=== PATIENT | female | born 1955 | race Caucasian/White ===

== ENCOUNTER 2019-06-12 10:41 | Outpatient (CLI) | payer MEDICAID, SELFPAY ==
--- NOTE | 2019-06-12 11:13 | ECHO_ITS ---
Patient Info Name: Khushboo Pierre Age: 63 years : 1955 Gender: Female Ht: 65 in Wt: 210 lbs BSA: 2.13 m2 HR: 51 bpm BP: 116 / 61 mmHg Technical Quality: Good Exam Date: 06/12/2019 11:23 AM Exam Location: [facility] Patient Status: Outpatient Admit Date: 06/12/2019 Staff Ordering Physician: Joe Mcdonald MD S[employer]uric [employer] Plant Operator: Minna Spivey RDCS Attending Provider: Joe Mcdonald MD Referring Physician: Tamara JENNINGS; Exam Type: CA echo doppler color flow Study Info Indications - localized swelling Complete two-dimensional, color flow and Doppler transthoracic echocardiogram is performed. Summary 1. Left ventricular chamber dimension is normal. 2. Left ventricular systolic function is normal, estimated at 60-65%. 3. The left ventricular diastolic function is grade II diastolic dysfunction. 4. E/E' 13 is mildly elevated. 5. Left atrial chamber dimension is mildly enlarged. 6. There is mild tricuspid valve regurgitation. 7. No pulmonary hypertension, estimated pulmonary arterial systolic pressure is 28 mmHg. 8. There is trace pulmonic regurgitation. Left Ventricle E/E' 13 is mildly elevated. Left ventricular chamber dimension is normal. Left ventricular systolic function is normal, estimated at 60-65%. The left ventricular diastolic function is grade II diastolic dysfunction. Right Ventricle Right ventricular chamber dimension is normal. Right ventricular systolic function is normal. Left Atria Left atrial chamber dimension is mildly enlarged. Right Atria Right atrial chamber dimension is normal. Aortic Valve The aortic valve is trileaflet. There is no aortic valve stenosis. There is no aortic valve regurgitation. Pulmonic Valve There is trace pulmonic regurgitation. Mitral Valve There is no mitral valve stenosis. There is no mitral valve regurgitation. Tricuspid Valve There is mild tricuspid valve regurgitation. No pulmonary hypertension, estimated pulmonary arterial systolic pressure is 28 mmHg. Pericardium/Pleural There is no pericardial effusion. Inferior Vena Cava Normal inferior vena cava with >50% collapse upon inspiration consistent with normal right atrial pressure, 5 mmHg. Aorta The aortic root size at the sinus of Valsalva is normal. Left Ventricular Outflow Tract Name Value Normal LVOT 2D LVOT Diameter 2.0 cm LVOT Doppler LVOT Peak Gradient 4 mmHg LVOT Mean Gradient 2 mmHg LVOT VTI 23 cm LVOT VTI/AV VTI Ratio 0.7 LVOT Stroke Volume 74 ml LVOT CO 13.1 l/min LVOT CI 6.1 l/min/m2 Pulmonic Valve Name Value Normal PV Doppler PV Peak Gradient
== END 2019-06-12 10:42 | disposition home or self-care (01) ==
LOC: ANHCARD 10:44
PROVIDERS: PCP Family Medicine; Visit Provider Family Medicine
DX: R22.43 Localized swelling, mass and lump, lower limb, bilateral (principal); I11.9 Hypertensive heart disease without heart failure; E11.65 Type 2 diabetes mellitus with hyperglycemia
CPT/HCPCS: 93306

== ENCOUNTER 2020-07-24 13:20 | Outpatient (CLI) | payer MEDICARE, MEDICAID, SELFPAY ==
--- NOTE | ~2020-07-24 | XR_ITS ---
EXAMINATION: XR knee RT 3V EXAM DATE: 07/24/2020 13:47 INDICATION: M23.91 -Right knee pain, internal derangement. TECHNIQUE: Three projections of the right knee. There is no prior study for comparison. FINDINGS: No evidence osteochondral defect or joint body in the right knee joint. There is moderate tricompartmental primary osteoarthritis. Trace joint fluid. There are no acute fractures or disloca tions identified. There is no subcutaneous gas. The soft tissue is unremarkable. There are no rad iopaque foreign bodies. IMPRESSION: Moderate right knee osteoarthritis. Reviewed, dictated and finalized at location B. D DRIVER
== END 2020-07-24 13:21 | disposition home or self-care (01) ==
PROVIDERS: PCP Family Medicine; Visit Provider Family Medicine
DX: M23.91 Unspecified internal derangement of right knee (principal); M17.11 Unilateral primary osteoarthritis, right knee
CPT/HCPCS: 73562

== ENCOUNTER 2020-12-07 07:12 | Outpatient (CLI) | payer MEDICARE, MEDICAID, SELFPAY ==
--- NOTE | ~2020-12-07 | MM_ITS ---
EXAMINATION: MM screening jamia BI w marisol HISTORY: Screening mammogram TECHNIQUE: Craniocaudal and mediolateral oblique 3-D tomosynthesis images were obtained and synthetic 2-D images were generated. CAD analysis was submitted and interpreted. COMPARISON: No prior mammogram is available for comparison at this institution. BREAST PARENCHYMAL COMPOSITION: The breasts are almost entirely fatty. FINDINGS: There is no evidence of suspicious mass, calcification, or architectural distortion to sugg est malignancy in either breast. There has been no suspicious interval change. IMPRESSION: 1. No mammographic evidence of malignancy. 2. Recommend routine screening mammography in one year. BI-RADS Category 1: Negative Reviewed, dictated and finalized at location A.
--- NOTE | ~2020-12-07 | CT_ITS ---
EXAMINATION: CT lung screening DATE: 12/07/2020 08:08 INDICATION: Chronic cough TECHNIQUE: Computed tomography (CT) of the chest was performed without intravenous contrast. The dose -length product was 145.17 mGy-cm. Automated exposure control and iterative reconstruction technique were employed. COMPARISON: Chest dated 05/08/[address] dated 08/02/2017 FINDINGS: No significant pleural or pericardial effusion. No thoracic lymphadenopathy. There is ather osclerosis of the aorta and coronary arteries. There are surgical changes of left nephrectomy and cho lecystectomy. There is a 3 mm left upper lobe nodule, image 29. There is a calcified granuloma right upper lobe. No endobronchial lesions. No pneumothorax. IMPRESSION: 1. Lung-RADS category 2: Benign appearance or behavior. Continue annual screening with noncontrast lo w-dose chest CT in 12 months. Reviewed, dictated and finalized at location A. IMPRESSION: 1. Lung-RADS category 2: Benign appearance or behavior. Continue annual screeni ng with noncontrast low-dose chest CT in 12 months.
--- NOTE | ~2020-12-07 | DEXA_ITS ---
Bone Density Report Name: Khushboo Pirere Age: 65 Sex: Female Ethnicity: White Date of : 1955 Indication: postmenopausal; screening for osteoporosis; hysterectomy; Referring Provider: Brady Grissom Study: Bone densitometry was performed. Exam Date: December 07, 2020 Accession number: [id number] Bone Density: Region BMD T-score Z-score Classification AP Spine(L1-L4) 0.939 -1.0 0.8 Normal Femoral Neck (Left) 0.721 -1.2 0.4 Osteopenia Total Hip (Left) 0.891 -0.4 0.9 Normal Femoral Neck (Right) 0.712 -1.2 0.3 Osteopenia Total Hip (Right) 0.819 -1.0 0.3 Normal Femoral Neck Mean 0.717 -1.2 0.4 Osteopenia Total Hip Mean 0.855 -0.7 0.6 Normal World Health Organization criteria for BMD impression classify patients as: Normal (T-score at or above -1.0), Osteopenia (T-score between -1.0 and -2.5), or Osteoporosis (T-score at or below -2.5). 10-year Fracture Risk(1): Major Osteoporotic Fracture 8.1% Hip Fracture 1.2% Reported Risk Factors: [place] (), Neck BMD=0.712, BMI=32.3, smoking (1) FRAX(R) Version 3.08. Fracture probability calculated for an untreated patient. Fracture probability may be lower if the patient has received treatment. Clinical Information Provided by Patient: Smokes Has the following medical conditions: Hysterectomy Patient maximum height was 66 Menopause Age: 32 Drinks caffeinated beverages Onset of menses at age 13 Number of children 4 Impression: The patient has low bone mass, based on the Left Femoral Neck T-score. The patient has risk factors, including: smoking. Discussion: BONE DENSITY IS LOW AT ONE OR MORE SKELETAL SITES. This patient's lowest T-score is low at one or more skeletal sites. It meets the World Health Organization's (WHO) criteria for ?low bone mass? (T-score between -1.0 and -2.5). The patient's 10-year risk of fracture as calculated by FRAX is less than the threshold where pharmacological therapy is recommended by the National Osteoporosis Foundation (NOF). However, all treatment decisions require clinical judgment and consideration of individual patient factors, including patient preferences, comorbidities, previous drug use, risk factors not captured in the FRAX model (e.g., frailty, falls, vitamin D deficiency, increased bone turnover, interval significant decline in bone density) and possible under or overestimation of fracture risk by FRAX. The patient should follow a healthful lifestyle (good nutrition with adequate calcium and vitamin D, and appropriate weight-bearing exercise). Follow-Up: Consider repeating this study in 2 to 3 years to reassess this patient's status, or sooner if there is some new clinical indication. Reported by: Dr. Carlyle Tripathi on 12/07/2020 8:01:00 AM.
[2020-12-07 07:27] LABS: Basophils Absolute Auto 0.05 K/mm3 (0.00-0.10); Basophils Percent Auto 0.6 % (0.0-1.0); Eosinophils Absolute Auto 0.23 K/mm3 (0.02-0.50); Eosinophils Percent Auto 2.6 % (1.0-6.0); Hematocrit 40.4 % (35.0-42.0); Hemoglobin 13.4 g/dL (11.7-13.8); Immature Granulocyte Absolute 0.02 K/mm3 (0.00-0.00); Immature Granulocyte Percent A 0.2 % (0.0-0.0); Lymphocytes Absolute Auto 3.42 K/mm3 (1.10-4.50); Lymphocytes Percent Auto 38.5 % (18.0-42.0); Mean Corpuscular HGB Conc 33.2 g/dL (32.0-36.0); Mean Corpuscular Hemoglobin 29.3 pg (27.0-31.0); Mean Corpuscular Volume 88.2 fL (78.0-102.0); Monocytes Absolute Auto 0.66 K/mm3 (0.10-0.90); Monocytes Percent Auto 7.4 % (2.0-11.0); Neutrophils Absolute Auto 4.5 K/mm3 (1.7-7.2); Neutrophils Percent Auto 50.7 % (50.0-70.0); Platelet Count Result 264 K/mm3 (150-420); Red Blood Count 4.58 M/mm3 (4.20-5.40); Red Cell Distribution Width 12.7 % (11.6-14.4); White Blood Count 8.9 K/mm3 (4.8-10.8)
[2020-12-07 07:53] LABS: Alanine Aminotransferase 24 U/L (14-59); Albumin Level 3.4 g/dL (3.4-5.0); Alkaline Phosphatase 81 U/L (46-116); Anion Gap 10 mmol/L (8-16); Aspartate Amino Transferase 12 U/L (15-37); Bilirubin,Total 0.3 mg/dL (0.00-1.00); Blood Urea Nitrogen 28 mg/dL (7-18); Calcium 9.2 mg/dL (8.5-10.1); Carbon Dioxide 25 mmol/L (21-32); Chloride 106 mmol/L (98-108); Estimated Glomerular Filt Rate 45; Glucose 127 mg/dL (70-99); Osmolality Calculated 299 mOsm/kg (285-295); Potassium 4.2 mmol/L (3.5-5.1); Sodium 141 mmol/L (136-145); Total Protein 7.3 g/dL (6.4-8.2)
== END 2020-12-07 07:13 | disposition home or self-care (01) ==
LOC: CHSIMG 07:18
PROVIDERS: PCP Internal Medicine; Visit Provider Internal Medicine
DX: E11.9 Type 2 diabetes mellitus without complications (principal); I10 Essential (primary) hypertension; Z12.31 Encounter for screening mammogram for malignant neoplasm of breast; Z78.0 Asymptomatic menopausal state; Z13.820 Encounter for screening for osteoporosis; Z12.2 Encounter for screening for malignant neoplasm of respiratory organs; Z87.891 Personal history of nicotine dependence
CPT/HCPCS: 36415; 71271; 77063; 77067; 77080; 80053; 85025

== ENCOUNTER 2021-01-12 01:33 | Day surgery (SDC) | payer MEDICARE, MEDICAID, SELFPAY ==
[2020-12-30 14:32] VITALS: BMI 33.1
[2021-01-12 08:03] VITALS: BP 105/53; PULSE 74; RESP 18; TEMP 35.1; O2SAT 98; BMI 32.5
[2021-01-12 08:31] LABS: Glucose Point of Care 155 mg/dl (65-105)
--- NOTE | 2021-01-12 08:36 | WPDGICN ---
Assessment and Plan Assessment and plan (1) Family history of colon cancer in mother: Code(s): Z80.0 - Family history of malignant neoplasm of digestive organs Status: Acute Assessment and Plan: Patient has a family history colon cancer in both mother and daughter. Surveillance colonoscopy is advised at least every 5 years. (2) History of colon polyps: Code(s): Z86.010 - Personal history of colonic polyps Status: Acute Assessment and Plan: Patient has a prior history of colon polyps in addition to a family history of colon cancer. An additional reason for screening colonoscopy at least every 5 years. Further recommendations will be given after colonoscopy. GI Consult Note Consult date/time: 01/12/21 08:36 HPI: Khushboo Pierre is a 65 year old female Presents for screening colonoscopy. Patient has a prior history of colon polyps. Colonoscopy was performed in 2004. Additionally patient reports a family history of colon cancer in both her mother and daughter. She reports that her own weight appetite bowel movements normal. She desires neoplasia screening at this time. patient denies any blood in her stool she denies abdominal pain. Main stable. Review of Systems Review of Systems: All systems reviewed & are unremarkable except as noted in HPI and below PMFSH Past Medical History Medical History (Updated 01/12/21 @ 08:38 by David Suh MD) Atrial premature depolarization Dermatofibroma History of chicken pox History of measles History of mumps Impaired glucose tolerance (oral) Internal derangement of right knee YOMI (obstructive sleep apnea) Supraventricular tachycardia Surgical History Surgical History (Updated 08/17/20 @ 09:15 by Elza Soto CMA) History of bladder suspension procedure History of hysterectomy History of kidney removal cancer Hx of cholecystectomy Family History Family History (Updated 08/17/20 @ 09:48 by Elza Soto CMA) Mother Carcinoma of colon Father , car accident No problems noted. Sibling Diabetes mellitus Sibling Breast cancer Diabetes mellitus Sibling Diabetes mellitus Cancer Sibling Diabetes mellitus Daughter No problems noted. Daughter Carcinoma of colon Son No problems noted. Son No problems noted. Grandparent Heart disease Social History Social History Smoking packs per day: 1 Smoking cigarettes per day: 20.0 Years smoked: 46 Smoking pack-years: 46.00 Smoking status: Current every day smoker Tobacco type: cigarettes Alcohol intake: never Substance use: never Substance use type: does not use Living arrangements: with family Gender identity (if verbalized by the patient): Female Spiritual care concerns: No Meds Home Medications and Allergies Home Medications Medication Instructions Recorded Confirmed Type aspirin 81 mg tablet,delayed 81 mg PO DAILY 05/16/19 01/12/21 History release lisinopril 40 mg tablet See Rx Instructions .ROUTE 07/22/20 01/12/21 Rx .COMPLEX #90 tablet semaglutide 0.25 mg SUBCUT WEEKLY #1.5 ml 08/07/20 01/12/21 Rx fluoxetine 40 mg capsule See Rx Instructions .ROUTE 12/28/20 01/12/21 Rx .COMPLEX #90 cap metformin 500 mg tablet,extended 500 mg PO DAILY #90 tablet 12/28/20 01/12/21 Rx release 24 hr hydrochlorothiazide 12.5 mg tablet 12.5 mg PO DAILY #90 tablet 12/29/20 01/12/21 Rx bupropion HCl 300 mg 24 hr tablet, See Rx Instructions .ROUTE 01/11/21 01/12/21 Rx extended release .COMPLEX #90 tablet Allergies Allergy/AdvReac Type Severity Reaction Status Date / Time codeine Allergy Unknown Skin Verified 01/12/21 07:59 Reaction Vital Signs Vital Signs - 24 hr 01/12/21 08:03 Temperature 95.1 F L Pulse Rate 74 Respiratory Rate 18 Blood Pressure 105/53 L Pulse Oxime
[2021-01-12] MEDS: LACTATED RINGERS 1,000 ML 150 ML IV CONT (08:39)
--- NOTE | 2021-01-12 08:51 | WPDANESEPPF ---
Anes - Initial Pre Proc Eval Procedure: Operation Date: 01/12/21 09:00 Proposed Procedures p Screening Colonoscopy - David Suh MD Date/Time: 01/12/21 08:51 Surgeon: David Suh MD Pre Op Diagnosis: hx of colon polyps Patient Data Age: 65 Gender: F Height: 1.65 m Weight: 88.7 kg Last Vital Signs Temp 95.1 F L 01/12/21 08:03 Pulse 74 01/12/21 08:03 Resp 18 01/12/21 08:03 BP 105/53 L 01/12/21 08:03 Pulse Ox 98 01/12/21 08:03 Allergies Allergy/AdvReac Type Severity Reaction Status Date / Time codeine Allergy Unknown Skin Verified 01/12/21 07:59 Reaction Home Medications Medication Instructions Recorded Confirmed Type aspirin 81 mg tablet,delayed 81 mg PO DAILY 05/16/19 01/12/21 History release lisinopril 40 mg tablet See Rx Instructions .ROUTE 07/22/20 01/12/21 Rx .COMPLEX #90 tablet semaglutide 0.25 mg SUBCUT WEEKLY #1.5 ml 08/07/20 01/12/21 Rx fluoxetine 40 mg capsule See Rx Instructions .ROUTE 12/28/20 01/12/21 Rx .COMPLEX #90 cap metformin 500 mg tablet,extended 500 mg PO DAILY #90 tablet 12/28/20 01/12/21 Rx release 24 hr hydrochlorothiazide 12.5 mg tablet 12.5 mg PO DAILY #90 tablet 12/29/20 01/12/21 Rx bupropion HCl 300 mg 24 hr tablet, See Rx Instructions .ROUTE 01/11/21 01/12/21 Rx extended release .COMPLEX #90 tablet Laboratory Tests 01/12/21 08:18 POC Capillary Glucose 155 mg/dl H mg/dl (65-105) Patient hx anesthesia problems: none Family hx anesthesia problems: none PMFSH Past Medical History Medical History (Updated 01/12/21 @ 08:38 by David Suh MD) Atrial premature depolarization Dermatofibroma History of chicken pox History of measles History of mumps Impaired glucose tolerance (oral) Internal derangement of right knee YOMI (obstructive sleep apnea) Supraventricular tachycardia Surgical History Surgical History (Updated 08/17/20 @ 09:15 by Elza Soto [facility]) History of bladder suspension procedure History of hysterectomy History of kidney removal cancer Hx of cholecystectomy Family History Family History (Updated 08/17/20 @ 09:48 by Elza Soto [facility]) Mother Carcinoma of colon Father , car accident No problems noted. Sibling Diabetes mellitus Sibling Breast cancer Diabetes mellitus Sibling Diabetes mellitus Cancer Sibling Diabetes mellitus Daughter No problems noted. Daughter Carcinoma of colon Son No problems noted. Son No problems noted. Grandparent Heart disease Social History Social History Smoking packs per day: 1 Smoking cigarettes per day: 20.0 Years smoked: 46 Smoking pack-years: 46.00 Smoking status: Current every day smoker Tobacco type: cigarettes Alcohol intake: never Substance use: never Substance use type: does not use Living arrangements: with family Gender identity (if verbalized by the patient): Female Spiritual care concerns: No Anes - Eval Final PreProcedure Day of Procedure 01/12/21 08:51 Patient weight: obese Heart: regular rate and rhythm Lungs: clear to auscultation Airway: Mallampati scale class II Neurological: alert and oriented Last oral intake: >/= 8 hours ASA classification: III Emergent: no Anesthetic plan: proceed Anesthesia type and monitoring: general GIVS and standard monitoring Informed Consent: The patient's anesthetic plan and its attendant risks and benefits were discussed with the patient/family/POA. Questions were solicited and answers provided to the satisfaction of the patient/family/POA.
[2021-01-12 09:40] VITALS: BP 94/46; PULSE 63; RESP 20; O2SAT 97
[2021-01-12 09:50] VITALS: BP 98/61; PULSE 62; RESP 19; O2SAT 98
[2021-01-12 10:00] VITALS: BP 110/61; PULSE 63; RESP 21; O2SAT 98
== END 2021-01-12 10:12 | disposition home or self-care (01) ==
PROVIDERS: PCP Internal Medicine; Visit Provider Internal Medicine Gastroenterology
PROC: 0DJD8ZZ Inspection of Lower Intestinal Tract, Via Natural or Artificial Opening Endoscopic (ICD-10-PCS; CPT 45378; principal; 2021-01-12 09:00)
DX: Z12.11 Encounter for screening for malignant neoplasm of colon (principal); K63.5 Polyp of colon; Z80.0 Family history of malignant neoplasm of digestive organs; K64.0 First degree hemorrhoids; Z79.82 Long term (current) use of aspirin; Z79.84 Long term (current) use of oral hypoglycemic drugs; G47.33 Obstructive sleep apnea (adult) (pediatric); R00.0 Tachycardia, unspecified; R73.02 Impaired glucose tolerance (oral); I49.1 Atrial premature depolarization; F17.210 Nicotine dependence, cigarettes, uncomplicated
CPT/HCPCS: 45385; 82948; 88305; J2704; J7120

== ENCOUNTER 2021-09-30 11:39 | Outpatient (CLI) | payer MEDICARE, MEDICAID, SELFPAY ==
[2021-09-30 13:03] LABS: Basophils Absolute Auto 0.1 K/mm3 (0.0-0.1); Basophils Percent Auto 0.6 % (0.2-1.2); Eosinophils Absolute Auto 0.3 K/mm3 (0-0.3); Eosinophils Percent Auto 2.7 % (0-4.4); Hemoglobin 12.5 g/dL (12.0-15.0); Immature Granulocyte Absolute 0.04 K/mm3 (0.00-0.031); Immature Granulocyte Percent A 0.4 % (0-0.5); Lymphocytes Percent Auto 35.7 % (18.3-44.2); Mean Corpuscular HGB Conc 32.1 g/dl (32-36); Mean Corpuscular Hemoglobin 29.6 pg (26-34); Mean Corpuscular Volume 92.2 fl (80-100); Monocytes Absolute Auto 0.7 K/mm3 (0.1-0.6); Monocytes Percent Auto 7.5 % (2.6-8.5); Neutrophils Absolute Auto 5.2 K/mm3 (1.3-6.7); Neutrophils Percent Auto 53.1 % (45.5-73.1); Platelet Count Result 267 k/mm3 (150-375); Red Blood Count 4.23 M/mm3 (4.2-5.4); White Blood Count 9.8 K/mm3 (4.5-10.0)
[2021-09-30 13:15] LABS: Urine Cotinine NEGATIVE
[2021-09-30 13:16] LABS: Albumin Level 4.4 g/dL (3.5-5.1); Anion Gap 7 mmol/L (8-16); Blood Urea Nitrogen 26 mg/dL (7-17); Calcium 9.5 mg/dL (8.4-10.2); Carbon Dioxide 29 mmol/L (22-30); Chloride 104 mmol/L (98-107); Estimated Glomerular Filt Rate 55; Glucose 104 mg/dL (65-110); Potassium 4.1 mmol/L (3.4-5.0); Sodium 140 mmol/L (137-145)
[2021-09-30 13:18] LABS: INR 1.1; Partial Thromboplastin Time 26.2 SECONDS (22.3-36.8)
== END 2021-09-30 11:40 | disposition home or self-care (01) ==
LOC: ANHSURGERY 11:45
PROVIDERS: Anesthesiology; PCP Internal Medicine; Visit Provider Orthopaedic Surgery
DX: Z01.812 Encounter for preprocedural laboratory examination (principal); M17.11 Unilateral primary osteoarthritis, right knee; Z51.81 Encounter for therapeutic drug level monitoring; Z79.899 Other long term (current) drug therapy
CPT/HCPCS: 36415; 80048; 80307; 82040; 83036; 85025; 85610; 85730; 86850; 86900; 86901; 87070

== ENCOUNTER 2021-10-07 00:50 | Day surgery (SDC) | payer MEDICARE, MEDICAID, SELFPAY ==
[2021-10-06 11:28] VITALS: BMI 33.6
[2021-10-07] VITALS (7 sets, daily range): BP systolic 98–115; BP diastolic 47–62; PULSE 56–68; RESP 13–20; TEMP 36.3; O2SAT 95–98; BMI 33.7
[2021-10-07 07:33] LABS: Basophils Absolute Auto 0.1 K/mm3 (0.0-0.1); Basophils Percent Auto 0.6 % (0.2-1.2); Eosinophils Absolute Auto 0.2 K/mm3 (0-0.3); Eosinophils Percent Auto 2.9 % (0-4.4); Hematocrit 39.8 % (37.0-47.0); Immature Granulocyte Absolute 0.02 K/mm3 (0.00-0.031); Immature Granulocyte Percent A 0.3 % (0-0.5); Lymphocytes Absolute Auto 2.71 K/mm3 (0.9-3.2); Mean Corpuscular HGB Conc 32.7 g/dl (32-36); Mean Corpuscular Hemoglobin 29.7 pg (26-34); Mean Corpuscular Volume 90.9 fl (80-100); Mean Platelet Volume 9.9 fl (7.4-10.4); Monocytes Absolute Auto 0.6 K/mm3 (0.1-0.6); Monocytes Percent Auto 7.9 % (2.6-8.5); Neutrophils Absolute Auto 4.3 K/mm3 (1.3-6.7); Neutrophils Percent Auto 54.3 % (45.5-73.1); Platelet Count Result 273 k/mm3 (150-375); Red Blood Count 4.38 M/mm3 (4.2-5.4); Red Cell Distribution Width 12.1 % (11.5-14.5)
[2021-10-07] MEDS: SODIUM CHLORIDE 0.9% IV 500 ML 100 ML IV CONT (07:40)
[2021-10-07 07:43] LABS: Anion Gap 8 mmol/L (8-16); Blood Urea Nitrogen 22 mg/dL (7-17); Calcium 9.2 mg/dL (8.4-10.2); Carbon Dioxide 27 mmol/L (22-30); Chloride 106 mmol/L (98-107); Estimated CRCL calculation 50 ml/min; Estimated Glomerular Filt Rate 50; Glucose 138 mg/dL (65-110); Potassium 4.1 mmol/L (3.4-5.0); Sodium 141 mmol/L (137-145)
[2021-10-07 07:48] LABS: INR 1.1; Prothrombin Time 13.4 Seconds (11.1-14.7)
--- NOTE | 2021-10-07 10:08 | WPDHPUPDATE1 ---
History and Physical Update Update Date/Time: 10/07/21 10:08 History and Physical has been reviewed, including an updated exam of the patient. There are NO changes in the patient's condition. Risks, benefits, and alternatives have been discussed and questions answered. Patient agrees to proceed with procedure.
--- NOTE | 2021-10-07 10:08 | WPDMODSED ---
Moderate Sedation Note-Pt Data Patient Data Allergies Allergy/AdvReac Type Severity Reaction Status Date / Time codeine AdvReac Unknown Itching Verified 10/07/21 07:30 NSAIDS (Non-Steroidal AdvReac AVOIDS Verified 10/07/21 07:30 Anti-Inflamma BECAUSE SHE HAS ONLY 1 KIDNEY Home Medications Medication Instructions Recorded Confirmed Type apixaban 5 mg tablet (Eliquis) 5 mg PO BID 09/30/21 10/06/21 History biotin 2,500 mcg tablet 5,000 mcg PO DAILY 09/30/21 10/06/21 History cholecalciferol (vitamin D3) 25 25 mcg PO DAILY 09/30/21 10/06/21 History mcg (1,000 unit) capsule fluoxetine 40 mg capsule 40 mg PO QAM 09/30/21 10/06/21 History geriatric multivitamin-min 1 tablet PO DAILY 09/30/21 10/06/21 History hydrochlorothiazide 12.5 mg tablet 12.5 mg PO QAM 09/30/21 10/06/21 History lisinopril 40 mg tablet 40 mg PO QAM 09/30/21 10/06/21 History metformin 500 mg tablet,extended 500 mg PO QAM 09/30/21 10/06/21 History release 24 hr rosuvastatin 10 mg tablet 10 mg PO DAILY 09/30/21 10/06/21 History acetaminophen 325 mg tablet 975 mg PO DAILY PRN Pain 10/06/21 10/06/21 History semaglutide 1 mg/dose (4 mg/3 mL) 1 mg subcut WEEKLY 10/06/21 10/06/21 History subcutaneous pen injector Current Medications: Active Medications Sodium Chloride (Normal Saline Iv) 500 mls @ 100 mls/hr IV CONT .Q5H RK Sedation/Anesthesia: No previous sedation/anesthesia problems (including family history). [facility] Past Medical History Medical History Atrial premature depolarization Dermatofibroma History of chicken pox History of measles History of mumps Impaired glucose tolerance (oral) Internal derangement of right knee YOMI (obstructive sleep apnea) Supraventricular tachycardia Surgical History Surgical History History of bladder suspension procedure History of hysterectomy History of kidney removal cancer Hx of cholecystectomy Family History Family History Mother Carcinoma of colon Father , car accident No problems noted. Sibling Diabetes mellitus Sibling Breast cancer Diabetes mellitus Sibling Diabetes mellitus Cancer Sibling Diabetes mellitus Daughter No problems noted. Daughter Carcinoma of colon Son No problems noted. Son No problems noted. Grandparent Heart disease Social History Social History Smoking packs per day: 1 Smoking cigarettes per day: 20.0 Years smoked: 45 Smoking pack-years: 45.00 Smoking status: Former smoker Tobacco type: cigarettes Second hand tobacco smoke exposure: Yes Smoking end date: 09/12/20 Alcohol intake: never Drinks per week: 0 Alcohol use details: rare etoh every few months on a special occasion Substance use: never Substance use type: does not use Living arrangements: other Additional living arrangements comments: lives with boyfriend Neftaly Carrasco Gender identity (if verbalized by the patient): Female Spiritual care concerns: No Mod Sed Physical Exam Physical Exam Pre Procedural Exam: Normal: Appearance, Eyes, Ears, Nose, Neck, Throat, Airway, Lungs, Heart Size, Heart Rate, Heart Rhythm, Neuro Exam, Abdomen, Liver, Kidneys, Spleen, Breasts, Genitalia, Extremities and Skin Hours since solid foods: 8 Hours since liquid intake: 8 Mallampati Classification: class 1 Internal Medicine - PN: Obj Da Vital Signs Vital Signs: Vital Signs - 24 hr 10/07/21 07:32 Temperature 36.3 C L Pulse Rate 68 Respiratory Rate 18 Blood Pressure 98/47 L Pulse Oximetry 95 Oxygen Delivery Room Air Meds/Results Medications: Active Medications Generic Name Dose Route Start Last Admin Trade Name Freq PRN Reason Stop Do
--- NOTE | 2021-10-07 10:10 | P.PCNCC_ITS ---
Cardiac Cath Procedure Note Date of procedure:: 10/07/21 Performing physician:: Angel Coker MD Date of service 10/07/2021 Indication:: abnormal stress test Brief clinical history:: this 65-year-old female with past medical history of diabetes, hypertension, recent diagnosis of atrial fibrillation who was evaluated prior to knee replacement. She did have coronary calcification on CT scan. Underwent stress test that was abnormal for possible ischemia inferior wall territory. She denies chest pain or shortness of breath. Procedure Procedure performed:: 1-Moderate sedation that started at 9:39 a.m.and ended at 10:03 a.m. with total duration 24 minutes using 2mg of Versed and 75mcg fentanyl. The registered nurse was khalif cespedes. 2-Selective left and right coronary angiogram. 3-Left heart catheterization with measurement of LVEDP and measurement of gradient across aortic valve. 4-Right common femoral arterial angiogram. 5-Deployment of 6 [place] Angio-Seal. Sedation/Medication given:: Moderate sedation. Access site:: Right common femoral artery. Estimated blood loss:: 10cc Procedure note:: After informed consent patient was brought in to confectionery laboratory manager with the was draped and prepped in usual manner. Moderate sedation was given and the right groin was infiltrated using 1% lidocaine. Five [place] Helenian sheath was obtained using micropuncture needle and the modified Seldinger technique. Selective left coronary angiogram was done using JL4 catheter with the tip of the catheter placed in the left main coronary artery. Selective right coronary angiogram was done using JR4 catheter with the tip of the catheter placed to the right coronary artery. After that 5 [place] pigtail catheter was advanced across the aortic valve into the left ventricle with measurement of LVEDP and measurement of gradient across aortic valve. Right common femoral arterial angiogram was done. Findings:: 1- left coronary artery is a large artery that divides into large LAD, large circumflex artery. Left main is free of disease. 2- left anterior descending artery is a large artery that runs and wraps around the apex. Has minimal irregularities. Proximally 20%. Proximally gives us a large diagonal branch with minimal irregularities. 3- leftcircumflex artery is a large artery Large artery with minimal irregularities. there is small ramus branch the proximal occluded. 4- right coronary artery is large artery and dominant with minimal irregularities. 5- LVEDP was 10 mm Hg and no gradient across aortic valve. 6- opening arterial pressure was 138/70 and closing pressure was 113/59 7- right femoral artery angiogram shows no significant disease in the right common femoral artery. Conclusion:: minimal coronary irregularities. Small ramus branch occluded proximally. False positive stress test. Assessment and Plan Assessment and plan (1) Abnormal stress test: Code(s): R94.39 - Abnormal result of other cardiovascular function study Status: Acute Plan - may proceed for the planned for the knee replacement.
[2021-10-07] MEDS: SODIUM CHLORIDE 0.9% IV 1,000 ML 125 ML IV CONT (10:35)
--- NOTE | 2021-10-07 12:36 | SUR.PHASEII ---
Discharge instructions read and given to pt and significant other. Pt and significant other states understanding. Significant other states not to start eliquis until either tomorrow or continue to hold if instructed by orthopedic surgeon.
== END 2021-10-07 13:05 | disposition home or self-care (01) ==
PROVIDERS: PCP Internal Medicine; Visit Provider Internal Medicine Cardiovascular Disease
PROC: 4A023N7 Measurement of Cardiac Sampling and Pressure, Left Heart, Percutaneous Approach (ICD-10-PCS; CPT 93452; principal; 2021-10-07 09:00)
DX: I25.10 Atherosclerotic heart disease of native coronary artery without angina pectoris (principal); R94.39 Abnormal result of other cardiovascular function study; I10 Essential (primary) hypertension; E11.9 Type 2 diabetes mellitus without complications; I48.91 Unspecified atrial fibrillation; I47.1 Supraventricular tachycardia; G47.33 Obstructive sleep apnea (adult) (pediatric); Z90.5 Acquired absence of kidney; Z85.528 Personal history of other malignant neoplasm of kidney; Z79.01 Long term (current) use of anticoagulants; Z79.84 Long term (current) use of oral hypoglycemic drugs; Z79.899 Other long term (current) drug therapy; Z87.891 Personal history of nicotine dependence
CPT/HCPCS: 36415; 80048; 85025; 85610; 93458; C1760; C1769; C1887; C1894; G0269; J1644; J2250; J3010; J7030; J7040

== ENCOUNTER 2021-10-13 00:59 | Day surgery (SDC) | payer MEDICARE, MEDICAID, SELFPAY ==
[2021-09-30 12:09] VITALS: BP 121/60; PULSE 64; RESP 16; TEMP 36.4; O2SAT 97; BMI 33.5
--- NOTE | 2021-09-30 12:21 | PC.NURSE ---
Report to the Outpatient Waiting Room, entrance under the green pavilion located off [address], at time __6:00AM on date __10/13/21 . OR Time: __7:30AM . - You and your visitor will be asked a series of questions to screen for COVID 19 for your protection. - Only one visitor is allowed at this time. - The patient visitor is requested to leave or wait in car when not with patient. - A mask is required within the hospital. Patients may have clear liquids (water, carbonated beverages, clear teas, apple juice) until 3 hours prior to surgery with a maximum of 20 ounces. - No food from midnight until time of surgery - Infants may have breast milk until 4 hours before surgery, formula 6 hours prior to surgery. - Children will be allowed to drink immediately following surgery. If applicable, please bring a bottle or sippy cup to assist with drinking. Juice, water, soda, and popsicles are readily available. For infants on formula, please bring formula the day of surgery. Pacifiers are allowed. Take the following medications with a SIP of water the morning of surgery: __FLUOXETINE Medications to discontinue per physician ____HOLD ELIQUIS PER DR DUFFY-PT IS CALLING, HOLD VITAMINS/SUPPLEMENTS 7 DAYS PRE-OP- LAST DOSE 10/06/21 Please no make-up, nail albanian, hairspray, perfume, deodorant, or body powder the day of surgery. No jewelry (including any body piercings) or valuables the day of surgery, leave them at home. Please take a shower or bath the night before, or the morning of, surgery with an antibacterial soap. Wear comfortable, loose fitting clothing. Children are encouraged to wear pajamas. - Jewelry must be removed prior to entering the operating room. Rings and piercings that are not removed may be cut off. - The hospital will not accept responsibility for valuables. - Please leave all valuables, including medications, at home the day of surgery. If you are going home after surgery, a licensed cdl team truck driver must drive you home. - NO public transportation without another adult. - We recommend that an adult stay with you for 24 hours following discharge. - We also recommend that you do not drive, make important decision, drink alcoholic beverages, or take any drugs that were not prescribed by your health care provider for at least 24 hours after your discharge time. For Pediatric surgeries, we recommend two adults accompany the child home (only one inside the building at this time). Follow any additional instructions given to you from your surgeon. If you or anyone in your household have experienced Covid symptoms in the past week, please notify your surgeon or the nurse liaison at the phone number below for possible testing. Telephone instructions given to __PATIENT and asked if any additional questions and then verbalized understanding. Patient advised to call surgeon office or pre surgery nurse liaison [phone] if any additional questions.
--- NOTE | 2021-10-12 18:43 | PM.IMHP ---
H&P: HPI History of Present Illness Date/Time: 10/12/21 18:43 Chief Complaint: Osteoarthritis right knee PMFSH Past Medical History Medical History Atrial premature depolarization Dermatofibroma History of chicken pox History of measles History of mumps Impaired glucose tolerance (oral) Internal derangement of right knee YOMI (obstructive sleep apnea) Supraventricular tachycardia Surgical History Surgical History History of bladder suspension procedure History of hysterectomy History of kidney removal cancer Hx of cholecystectomy Family History Family History Mother Carcinoma of colon Father , car accident No problems noted. Sibling Diabetes mellitus Sibling Breast cancer Diabetes mellitus Sibling Diabetes mellitus Cancer Sibling Diabetes mellitus Daughter No problems noted. Daughter Carcinoma of colon Son No problems noted. Son No problems noted. Grandparent Heart disease Social History Social History Smoking packs per day: 1 Smoking cigarettes per day: 20.0 Years smoked: 45 Smoking pack-years: 45.00 Smoking status: Former smoker Tobacco type: cigarettes Second hand tobacco smoke exposure: Yes Smoking end date: 09/12/20 Alcohol intake: never Drinks per week: 0 Alcohol use details: rare etoh every few months on a special occasion Substance use: never Substance use type: does not use Living arrangements: other Additional living arrangements comments: lives with boyfriend Neftayl Carrasco Gender identity (if verbalized by the patient): Female Spiritual care concerns: No Comments patient has history of left nephrectomy for renal cell carcinoma. History of arthroscopic surgery right knee 20 years ago. Patient underwent preoperative cardiovascular examination and was referred to Cardiology due to recent history of diagnosis of atrial flutter and past medical history of diabetes and hypertension and a 30 pack-year history of smoking and obesity. She saw Dr. Coker.. Her atrial flutter started in June of 2021. History of lower extremity edema resolved with hydrochlorothiazide. She quit smoking 1 year ago. History of coronary artery calcification. Also history of elevated LDL on Crestor. Patient had a positive stress test and then underwent coronary artery catheterization on 10/07/2021. The results of the cardiac catheterization were minimal coronary irregularities, small ramus branch occluded proximally. False-positive stress test. The plan was that she may proceed for the planned knee replacement per Dr. John Paul Ahumada Home Medications and Allergies Home Medications Medication Instructions Recorded Confirmed Type apixaban 5 mg tablet (Eliquis) 5 mg PO BID 09/30/21 10/06/21 History biotin 2,500 mcg tablet 5,000 mcg PO DAILY 09/30/21 10/06/21 History cholecalciferol (vitamin D3) 25 25 mcg PO DAILY 09/30/21 10/06/21 History mcg (1,000 unit) capsule fluoxetine 40 mg capsule 40 mg PO QAM 09/30/21 10/06/21 History geriatric multivitamin-min 1 tablet PO DAILY 09/30/21 10/06/21 History hydrochlorothiazide 12.5 mg tablet 12.5 mg PO QAM 09/30/21 10/06/21 History lisinopril 40 mg tablet 40 mg PO QAM 09/30/21 10/06/21 History metformin 500 mg tablet,extended 500 mg PO QAM 09/30/21 10/06/21 History release 24 hr rosuvastatin 10 mg tablet 10 mg PO DAILY 09/30/21 10/06/21 History acetaminophen 325 mg tablet 975 mg PO DAILY PRN Pain 10/06/21 10/06/21 History semaglutide 1 mg/dose (4 mg/3 mL) 1 mg subcut WEEKLY 10/06/21 10/06/21 History subcutaneous pen injector Allergies Allergy/AdvReac Type Severity Reaction Status Date / Time codeine AdvReac Unknown Itchi
[2021-10-13] VITALS (17 sets, daily range): BP systolic 98–147; BP diastolic 42–67; PULSE 60–98; RESP 12–19; TEMP 35.7–36.6; O2SAT 92–99
--- NOTE | ~2021-10-13 | XR_ITS ---
EXAMINATION: XR knee RT 2V DATE: 10/13/2021 12:22 CDT INDICATION: Right total knee arthroplasty TECHNIQUE: 2 views right knee FINDINGS: There is a right total knee arthroplasty in expected position. Subcutaneous gas with fluid and air in the joint are consistent with recent surgery. No evidence of periprosthetic fracture. IMPRESSION: 1. Recent right total knee arthroplasty. Reviewed, dictated and finalized at location A.
[2021-10-13] MEDS: ACETAMINOPHEN 500 MG TABLET 1000 MG PO ×3 (06:39→19:27)
[2021-10-13] MEDS: TRANEXAMIC ACID 1,000MG/ISO100 1,000 MG/100 ML BAG 200 MG IVPB (06:40)
[2021-10-13] MEDS: LACTATED RINGERS 1,000 ML 30 ML IV CONT ×2 (06:40→12:00)
--- NOTE | 2021-10-13 06:55 | WPDANESEPPF ---
Anes - Initial Pre Proc Eval Procedure: Operation Date: 10/13/21 07:30 Proposed Procedures p Right Total Knee Arthroplasty - Thierry Kendrick MD Date/Time: 10/13/21 06:55 Surgeon: Thierry Kendrick MD Pre Op Diagnosis: oa right knee Patient Data Age: 65 Gender: F Height: 1.66 m Weight: 93 kg Last Vital Signs Temp 36.4 C L 09/30/21 12:09 Pulse 64 09/30/21 12:09 Resp 16 09/30/21 12:09 BP 121/60 09/30/21 12:09 Pulse Ox 97 09/30/21 12:09 O2 Del Method Room Air 09/30/21 12:09 Allergies Allergy/AdvReac Type Severity Reaction Status Date / Time codeine AdvReac Unknown Itching Verified 10/07/21 07:30 NSAIDS (Non-Steroidal AdvReac AVOIDS Verified 10/07/21 07:30 Anti-Inflamma BECAUSE SHE HAS ONLY 1 KIDNEY Home Medications Medication Instructions Recorded Confirmed Type apixaban 5 mg tablet (Eliquis) 5 mg PO BID 09/30/21 10/06/21 History biotin 2,500 mcg tablet 5,000 mcg PO DAILY 09/30/21 10/06/21 History cholecalciferol (vitamin D3) 25 25 mcg PO DAILY 09/30/21 10/06/21 History mcg (1,000 unit) capsule fluoxetine 40 mg capsule 40 mg PO QAM 09/30/21 10/06/21 History geriatric multivitamin-min 1 tablet PO DAILY 09/30/21 10/06/21 History hydrochlorothiazide 12.5 mg tablet 12.5 mg PO QAM 09/30/21 10/06/21 History lisinopril 40 mg tablet 40 mg PO QAM 09/30/21 10/06/21 History metformin 500 mg tablet,extended 500 mg PO QAM 09/30/21 10/06/21 History release 24 hr rosuvastatin 10 mg tablet 10 mg PO DAILY 09/30/21 10/06/21 History acetaminophen 325 mg tablet 975 mg PO DAILY PRN Pain 10/06/21 10/06/21 History semaglutide 1 mg/dose (4 mg/3 mL) 1 mg subcut WEEKLY 10/06/21 10/06/21 History subcutaneous pen injector Patient hx anesthesia problems: none Family hx anesthesia problems: none Results Review: All pre-operative results and documents have been reviewed as part of the pre-operative evaluation. [facility] Past Medical History Medical History Atrial premature depolarization Dermatofibroma Diabetes mellitus type 2, uncontrolled Essential (primary) hypertension History of chicken pox History of measles History of mumps Impaired glucose tolerance (oral) Internal derangement of right knee Mixed hyperlipidemia YOMI (obstructive sleep apnea) Supraventricular tachycardia Surgical History Surgical History History of bladder suspension procedure History of hysterectomy History of kidney removal cancer Hx of cholecystectomy Family History Family History Mother Carcinoma of colon Father , car accident No problems noted. Sibling Diabetes mellitus Sibling Breast cancer Diabetes mellitus Sibling Diabetes mellitus Cancer Sibling Diabetes mellitus Daughter No problems noted. Daughter Carcinoma of colon Son No problems noted. Son No problems noted. Grandparent Heart disease Social History Social History Smoking packs per day: 1 Smoking cigarettes per day: 20.0 Years smoked: 45 Smoking pack-years: 45.00 Smoking status: Former smoker Tobacco type: cigarettes Second hand tobacco smoke exposure: Yes Smoking end date: 09/12/20 Alcohol intake: never Drinks per week: 0 Alcohol use details: rare etoh every few months on a special occasion Substance use: never Substance use type: does not use Living arrangements: with family Additional living arrangements comments: lives with boyfriend Neftaly Carrasco Gender identity (if verbalized by the patient): Female Spiritual care concerns: No Anes - Eval Final PreProcedure Day of Procedure 10/13/21 06:55 Patient weight: obese Heart: regular rate and rhythm
[2021-10-13 06:59] LABS: Glucose Point of Care 132 mg/dl (65-105)
--- NOTE | 2021-10-13 07:17 | WPDHPUPDATE1 ---
History and Physical Update Update Date/Time: 10/13/21 07:17 History and Physical has been reviewed, including an updated exam of the patient. There are NO changes in the patient's condition. Risks, benefits, and alternatives have been discussed and questions answered. Patient agrees to proceed with procedure.
[2021-10-13] MEDS: ceFAZolin 2 GM/D5W 50 ML 2 GM/50 ML BAG IVPB (07:34)
[2021-10-13] MEDS: ceFAZolin SODIUM 1 GM VIAL 3 GM IRRIGATION (08:40)
[2021-10-13] MEDS: GENTAMICIN BONE CEMENT REFOBACIN 1 EACH TOPICAL (10:18)
[2021-10-13] MEDS: TRANEXAMIC ACID 1,000 MG/10 ML AMPUL 1000 MG IV PUSH (10:46)
[2021-10-13] MEDS: ceFAZolin SODIUM 1 GM VIAL IV PUSH (10:46)
--- NOTE | 2021-10-13 12:08 | W.PM.PROC2 ---
Procedure Note - Detailed Date of Procedure 10/13/21 Pre-op Diagnosis oa right knee Post-op Diagnosis Same Procedure Performed Right total knee arthroplasty Surgeon Thierry Kendrick MD Triage Clinician Frida Anesthesia General Description of Procedure Patient was brought to the operating room and general anesthesia with was administered. Under anesthesia her flexion contracture diminished to about 5?. She received 2 g Ancef weight based vancomycin 1 g of tranexamic acid preoperatively and the right leg prepped draped usual fashion. Limb was exsanguinated tourniquet elevated to 300 mmHg. A 7 in longitudinal midline incision was used a vastus medialis splitting approach utilized. Infrapatellar and suprapatellar fat pads were excised and a quadriceps synovectomy carried out. There was minor chondromalacia changes on the patella and I considered leaving this un resurfaced. A guide wilner was inserted down the femoral canal after aspiration of canal contents using 5 degree valgus cutting bushing 10 mm of bone were removed the distal femur. Because the guide set on osteophyte this removed a little bit less than this. Next the tibial plateau was cut. Cut was made perpendicular to the axis of the tibia removing about 2 mm of bone from the low point of the medial lateral plateaus. PCL was recessed and we had 10 mm flexion gaps bilaterally at this point. Femoral sizing guide was applied. 3? of external rotation matched Whitesides line properly. Posterior referencing pinholes were placed and the femur was cut to a size 60 vanguard. This overhung medial william and lateral about a half a mm on each side but was the proper size for her anterior to posterior. The knee was far too tight in extension an additional 2 mm of bone removed the distal femur at this time. The tibia was sized to a 67 which fit line to line posterolateral to anteromedial this was punched. Trialing the knee still lacks full extension and was notably tighter laterally than medially. There was a little bit of play medially at this point at 10? of flexion and no play laterally. She did have a mild valgus deformity preoperatively. The iliotibial band was pie crusted and the posterolateral corner released leaving the popliteus and lateral collateral ligaments intact. With this done the knee came out to about 6? from full extension with a positive bounce and there was a little bit of play laterally additional plate medially. Posterior femoral osteophytes were removed and posterior capsule released off the distal femur was carried out centrally and over to the lateral side. We did not release far medially because of her valgus deformity. On re trialing the knee lacked just 2 or 3? of extension and had a positive bounce. Therefore an additional mm to a mm and half of bone was removed the distal femur the chamfer cuts revisited and on read trialing the knee came out to full extension with a negative bounce with 2 mm of medial opening 1 mm lateral opening in extension. In flexion the medial side opened up 2.5 mm lateral side a mm and was appropriate anterior posterior drawer stability in all positions. The patella tracking was then assessed. Going from deep flexion to extension the superior aspect of the patella tendon to catch on the trochlear notch edge of the femoral component as her patella tendon the sink deeply into the intercondylar notch. I did not think this would be satisfactory therefore the patella was cut from 22 mm to 15.5 mm. Bone quality was very good. This tracked nicely. Lug holes were drilled the distal femur. The limb was re-exsanguinated and tourniquet elevated again to 300 mmHg. We had put the tourniquet down earlier at 90 minutes. Step drill was used to make multiple perforations in the distal femur and tibial plateau any bony surfaces thoroughly irrigated and dried. Using 2 batches of methylmethacrylate 1 contained gentamicin powder the cement was immediately applied to the 67 tibial
[2021-10-13] MEDS: fentaNYL CITRATE INJ (*CRX) 100 MCG/2 ML VIAL 25 MCG IV PUSH ×8 (12:12→13:28)
[2021-10-13] MEDS: ONDANSETRON INJ 4 MG/2 ML VIAL IV PUSH ×2 (12:31→15:30)
[2021-10-13 12:38] LABS: Glucose Point of Care 194 mg/dl (65-105)
--- NOTE | 2021-10-13 13:53 | PC.NURSE ---
This patient, Khushboo Pierre, was admitted to Medical Room 243-. Patient/family oriented to hospital policies and general routines including ID bracelet, bed and alarms, visiting hours, pain management, procedures, bathroom and other care routines, personal items, smoking policy, room service/diet, and visiting hours. Information on how to activate the Rapid Response Team has been discussed. Patient/Family are encouraged to report perceived risks to care and to ask questions if they do not understand what they are told or what they should do.
[2021-10-13] MEDS: oxyCODONE HCL (*CRX) 5 MG TAB IR PO ×5 (14:17→23:17)
[2021-10-13] MEDS: SODIUM CHLORIDE 0.9% IV 1,000 ML 125 ML IV CONT (14:19)
--- NOTE | 2021-10-13 15:29 | P.CONIM_ITS ---
Assessment and Plan Assessment and plan (1) Status post right knee replacement: Code(s): Z96.651 - Presence of right artificial knee joint Status: Acute Assessment and Plan: * POD 0 * Postop care per Orthopedics+ * Oxycodone 5 mg p.o. Q 4 scheduled and p.r.n. acetaminophen and 1000 mg p.o. scheduled q.6 * Zofran 4 mg IV Q 4 p.r.n. for antiemetic * Cefazolin x3 bags and vancomycin x2 bags * Famotidine for GI prophylaxis * Eliquis for DVT * PT and OT (2) Osteoarthritis of right knee: Code(s): M17.11 - Unilateral primary osteoarthritis, right knee Status: Acute Assessment and Plan: * See above (3) Supraventricular tachycardia: Code(s): I47.1 - Supraventricular tachycardia Status: Acute Assessment and Plan: * Tele monitor shows sinus rhythm at this time * Looks to have 1 episode of SVT on sustained * Continue tele monitor * Adjust medications if needed * Continue Eliquis at 2.5 mg p.o. for right now per ortho (4) YOMI (obstructive sleep apnea): Code(s): G47.33 - Obstructive sleep apnea (adult) (pediatric) Status: Acute Assessment and Plan: * Continue home CPAP with current settings (5) Hyperlipidemia: Code(s): E78.5 - Hyperlipidemia, unspecified Status: Acute Assessment and Plan: * Continue home rosuvastatin 10 mg daily * LFTs in the a.m. (6) Hypertension: Code(s): I10 - Essential (primary) hypertension Status: Acute Assessment and Plan: * Current blood pressure 110/42 * Continue lisinopril and hydrochlorothiazide * Trend blood pressure * Adjust therapy as indicated (7) Diabetes: Code(s): E11.9 - Type 2 diabetes mellitus without complications Status: Acute Assessment and Plan: * Current glucose 194 * Hold home oral medications * Insulin sliding scale * Accu-Cheks AC and HS * Trend glucose * Adjust therapy as indicated Plan Thank you for allowing us to participate in this case please call with any questions. HPI Data of Consult Consult date: 10/13/21 Requesting Physician: Thierry Kendrick MD Primary Care Provider: Brady Grissom MD Consult Narrative Reason for consult: Medical Meanagement Narrative: Khushboo Pierre is a 65 year old female with a past medical history of diabetes, hypertension, hyperlipidemia who is here for an elective right knee replacement. Patient stated for year she has been having issues with her knee and pain. Patient states she has been through all of his shots and even quit smoking so she get the surgery done. Her surgery was performed today by Dr. Molina. Currently patient is lying in bed and she is in severe pain rating it about an 8/10. She does get done walking and was being stand due to sweats and nausea. Talked to the nurse about getting her some pain meds and some anti nausea medication. Patient denies any chest pain, shortness of breath, nausea, vomiting, diarrhea, constipation, weakness or fatigue at this time. Review of Systems Review of Systems: All systems reviewed & are unremarkable except as noted in HPI and below [facility] Past Medical History Medical History (Updated 10/13/21 @ 15:42 by Cheng Clemente, [employer]) Atrial premature depolarization Dermatofibroma Diabetes mellitus type 2, uncontrolled Essential (primary) hypertensi
--- NOTE | 2021-10-13 15:29 | PM.IMCN ---
Assessment and Plan Assessment and plan (1) Status post right knee replacement: Code(s): Z96.651 - Presence of right artificial knee joint Status: Acute Assessment and Plan: POD 0 Postop care per Orthopedics+ Oxycodone 5 mg p.o. Q 4 scheduled and p.r.n. acetaminophen and 1000 mg p.o. scheduled q.6 Zofran 4 mg IV Q 4 p.r.n. for antiemetic Cefazolin x3 bags and vancomycin x2 bags Famotidine for GI prophylaxis Eliquis for DVT PT and OT (2) Osteoarthritis of right knee: Code(s): M17.11 - Unilateral primary osteoarthritis, right knee Status: Acute Assessment and Plan: See above (3) Supraventricular tachycardia: Code(s): I47.1 - Supraventricular tachycardia Status: Acute Assessment and Plan: Tele monitor shows sinus rhythm at this time Looks to have 1 episode of SVT on sustained Continue tele monitor Adjust medications if needed Continue Eliquis at 2.5 mg p.o. for right now per ortho (4) YOMI (obstructive sleep apnea): Code(s): G47.33 - Obstructive sleep apnea (adult) (pediatric) Status: Acute Assessment and Plan: Continue home CPAP with current settings (5) Hyperlipidemia: Code(s): E78.5 - Hyperlipidemia, unspecified Status: Acute Assessment and Plan: Continue home rosuvastatin 10 mg daily LFTs in the a.m. (6) Hypertension: Code(s): I10 - Essential (primary) hypertension Status: Acute Assessment and Plan: Current blood pressure 110/42 Continue lisinopril and hydrochlorothiazide Trend blood pressure Adjust therapy as indicated (7) Diabetes: Code(s): E11.9 - Type 2 diabetes mellitus without complications Status: Acute Assessment and Plan: Current glucose 194 Hold home oral medications Insulin sliding scale Accu-Cheks AC and HS Trend glucose Adjust therapy as indicated Plan Thank you for allowing us to participate in this case please call with any questions. HPI Data of Consult Consult date: 10/13/21 Requesting Physician: Thierry Kendrick MD Primary Care Provider: Bardy Grissom MD Consult Narrative Reason for consult: Medical Meanagement Narrative: Khushboo Pierre is a 65 year old female with a past medical history of diabetes, hypertension, hyperlipidemia who is here for an elective right knee replacement. Patient stated for year she has been having issues with her knee and pain. Patient states she has been through all of his shots and even quit smoking so she get the surgery done. Her surgery was performed today by Dr. Molina. Currently patient is lying in bed and she is in severe pain rating it about an 8/10. She does get done walking and was being stand due to sweats and nausea. Talked to the nurse about getting her some pain meds and some anti nausea medication. Patient denies any chest pain, shortness of breath, nausea, vomiting, diarrhea, constipation, weakness or fatigue at this time. Review of Systems Review of Systems: All systems reviewed & are unremarkable except as noted in HPI and below PMFSH Past Medical History Medical History (Updated 10/13/21 @ 15:42 by BRANDIN Munoz) Atrial premature depolarization Dermatofibroma Diabetes mellitus type 2, uncontrolled Essential (primary) hypertension History of chicken pox History of measles History of mumps Impaired glucose tolerance (oral) Internal derangement of right knee Mixed hyperlipidemia YOMI (obstructive sleep apnea) Supraventricular tachycardia Surgical History Surgical History History of bladder suspension procedure History of hysterectomy History of kidney removal cancer Hx of cholecystectomy S/P cardiac cath 2021, no blockages Family History Family History Mother C
[2021-10-13] MEDS: SENNA/DOCUSATE SODIUM TABLET 2 TAB PO (16:20)
[2021-10-13] MEDS: FAMOTIDINE 20 MG TABLET PO (20:48)
[2021-10-14] VITALS (9 sets, daily range): BP systolic 98–133; BP diastolic 45–66; PULSE 63–77; RESP 16–21; TEMP 36–36.6; O2SAT 96–100
[2021-10-14] MEDS: ACETAMINOPHEN 500 MG TABLET 1000 MG PO ×2 (00:43→05:05)
[2021-10-14] MEDS: oxyCODONE HCL (*CRX) 5 MG TAB IR PO ×4 (00:43→10:21)
[2021-10-14 05:59] LABS: Basophils Percent Auto 0.2 % (0.2-1.2); Eosinophils Percent Auto 0.2 % (0-4.4); Hematocrit 31.6 % (37.0-47.0); Hemoglobin 10.4 g/dL (12.0-15.0); Immature Granulocyte Absolute 0.04 K/mm3 (0.00-0.031); Immature Granulocyte Percent A 0.3 % (0-0.5); Lymphocytes Absolute Auto 2.79 K/mm3 (0.9-3.2); Lymphocytes Percent Auto 20.7 % (18.3-44.2); Mean Corpuscular HGB Conc 32.9 g/dl (32-36); Mean Corpuscular Volume 91.1 fl (80-100); Mean Platelet Volume 10.3 fl (7.4-10.4); Monocytes Absolute Auto 1.5 K/mm3 (0.1-0.6); Monocytes Percent Auto 10.8 % (2.6-8.5); Neutrophils Absolute Auto 9.1 K/mm3 (1.3-6.7); Neutrophils Percent Auto 67.8 % (45.5-73.1); Platelet Count Result 249 k/mm3 (150-375); Red Blood Count 3.47 M/mm3 (4.2-5.4); Red Cell Distribution Width 12.1 % (11.5-14.5); White Blood Count 13.5 K/mm3 (4.5-10.0)
[2021-10-14 06:13] LABS: Anion Gap 4 mmol/L (8-16); Blood Urea Nitrogen 20 mg/dL (7-17); Calcium 8.7 mg/dL (8.4-10.2); Carbon Dioxide 29 mmol/L (22-30); Chloride 104 mmol/L (98-107); Estimated CRCL calculation 50 ml/min; Estimated Glomerular Filt Rate 50; Glucose 148 mg/dL (65-110); Potassium 4.9 mmol/L (3.4-5.0); Sodium 137 mmol/L (137-145)
--- NOTE | 2021-10-14 07:13 | PM.PNORT ---
Subjective Subjective Date/Time Seen: 10/14/21 07:13POD 1 alert ,avss, pt sitting in chair this morn, was up walking with PT yesterday, mild swelling to knee,dressing is dry, NVI, pain is well controlled, morning labs noted, overall pt is doing well, plan to have her work with PT this shanen then send home later this morning Objective Data Vital Signs Vital Signs: Vital Signs - 24 hr 10/13/21 12:00 10/13/21 12:15 10/13/21 12:30 Temperature 36.2 C L Pulse Rate 98 85 76 Respiratory Rate 12 19 15 Blood Pressure 147/67 H 129/60 116/51 L Pulse Oximetry 94 95 95 Oxygen Delivery Simple Face Mask Simple Face Mask Simple Face Mask Oxygen Flow Rate 6 6 6 10/13/21 12:45 10/13/21 13:00 10/13/21 13:15 Temperature Pulse Rate 66 86 81 Respiratory Rate 12 16 16 Blood Pressure 125/55 L 117/56 L 120/51 L Pulse Oximetry 93 95 96 Oxygen Delivery Room Air Nasal Cannula Nasal Cannula Oxygen Flow Rate 2 2 10/13/21 13:39 10/13/21 14:55 10/13/21 12:00 Temperature Pulse Rate 80 80 Respiratory Rate 15 Blood Pressure 119/50 L Pulse Oximetry 96 Oxygen Delivery Nasal Cannula Room Air Oxygen Flow Rate 2 10/13/21 13:45 10/13/21 14:00 10/13/21 15:32 Temperature 36.6 C 36.4 C L 36.6 C Pulse Rate 67 63 71 Respiratory Rate 16 16 18 Blood Pressure 124/60 130/55 L 110/42 L Pulse Oximetry 97 97 92 Oxygen Delivery Oxygen Flow Rate 10/13/21 16:52 10/13/21 14:57 10/13/21 21:06 Temperature 36.2 C L Pulse Rate 73 69 63 Respiratory Rate 16 Blood Pressure 126/51 L Pulse Oximetry 97 95 Oxygen Delivery Room Air Oxygen Flow Rate 10/13/21 21:07 10/13/21 21:13 10/13/21 21:00 Temperature 36.1 C L Pulse Rate 60 62 Respiratory Rate 15 18 Blood Pressure 125/50 L Pulse Oximetry 96 95 Oxygen Delivery Autopap Autopap Oxygen Flow Rate 10/14/21 01:14 10/13/21 20:00 10/14/21 03:10 Temperature Pulse Rate 61 Respiratory Rate 16 18 Blood Pressure Pulse Oximetry Oxygen Delivery Autopap Autopap Oxygen Flow Rate 10/14/21 01:25 10/14/21 00:00 10/14/21 04:00 Temperature 36.0 C L Pulse Rate 77 63 66 Respiratory Rate 21 H Blood Pressure 112/45 L Pulse Oximetry 100 Oxygen Delivery Oxygen Flow Rate Intake/Output Intake/Output: Intake & Output 10/11/21 10/12/21 10/13/21 10/14/21 23:59 23:59 23:59 23:59 Intake Total 1590 50 Output Total 100 Balance 1490 50 Meds/Results Medications: Active Medications Generic Name Dose Route Start Last Admin Trade Name Freq PRN Reason Stop Dose Admin Acetaminophen 1,000 mg 10/13/21 19:00 10/14/21 05:05 Acetaminophen 500 Mg Tablet PO 1,000 mg Q6HR RK Administration Apixaban 2.5 mg 10/14/21 09:00 Apixaban 2.5 Mg Tablet PO 10/25/21 21:01 Q12HR RK Cephalexin HCl 500 mg 10/14/21 10:00 Cephalexin 500 Mg Capsule PO Q6HR RK Dextrose 12.5 gm 10/14/21 06:18 Dextrose 50% 25 Gm/50 Ml Syringe IV PUSH PRN PRN Hypoglycemia Protocol Famotidine 20 mg 10/13/21 21:00 10/13/21 20:48 Famotidine 20 Mg Tablet PO 20 mg Q12HR RK Administration Fluoxetine HCl 40 mg 10/14/21 09:00 Fluoxetine Hcl 20 Mg Capsule PO QAM RK Glucagon 1 mg 10/14/21 06:18 Glucagon For Inj 1 Mg Vial IM PRN PRN Hypoglycemia Protocol Glucose 15 gm 10/14/21 06:18 Glucose Oral Gel 15 Gm Of Glucse In 37.5 Gm Tube PO PRN PRN Hypoglycemia Protocol Hydrochlorothiazide 12.5 mg 10/14/21 09:00 Hydrochlorothiazide 12.5 Mg Capsule PO QAM RK Vancomycin HCl 1,000 mg in 250 mls @ 250 mls/hr 10/13/21 19:00 10/14/21 06:17 Vancomycin 1,000 Mg/D5w 250 Ml IVPB 10/14/21 07:59 250 mls/hr Q12H RK Administration Cefazolin Sodium 1 gm in 50 mls @ 100 mls/hr 10/13/21 15:30 06/02/22 01:23 Ancef 1 Gm/D5w 50 Ml Pm IVPB 10/14/21 07:59 Infused Q8H RK Infusion Dextrose 1,000 mls @ 100 mls/hr 10/14/21 06:18
--- NOTE | 2021-10-14 07:21 | PM.DS ---
DS: Admitting Diagnosis Discharge Date 10/14 Admitting Diagnosis right knee DJD DS: Discharge Diagnosis Discharge Diagnosis Plan 65-year-old female underwent right total knee arthroplasty on 10/13. Underwent the procedure complications. Postoperatively she has been afebrile vital signs stable. Neurovascularly she is intact. She was up walking with physical therapy and have surgery. Her pain is well controlled with scheduled Tylenol as well as oxycodone 5 mg. Denies using Celebrex on her visit for history of only having 1 kidney. She is on Eliquis 2.5 mg b.i.d. for the 1st week and then after that she will resume her normal 5 mg b.i.d. dosing. Patient's history is dry. She has minimal swelling knee overall. No swelling in either lower extremity. She will also go home on Senokot MiraLax. Patient was advised to keep leg elevated home prevent swelling but also do her exercises regular basis. She has outpatient therapy starting next Monday. She was advised any questions or concerns when she goes home she is to call the office otherwise will see her after her appointment date. She was home on Keflex to her history of diabetes. DS: Summary Hospital Course Hospital Course: stable Time Spent with Patient Time attestation: Total time spent providing and/or coordinating discharge services: DS: Data Data Completed and Pending Labs on day of discharge: Labs from last 24 hours 10/14/21 10/14/21 10/13/21 04:56 04:56 12:35 WBC 13.5 H RBC 3.47 L Hgb 10.4 L Hct 31.6 L MCV 91.1 MCH 30.0 MCHC 32.9 RDW 12.1 Plt Count 249 MPV 10.3 Immature Gran % (Auto) 0.3 Neut % (Auto) 67.8 Lymph % (Auto) 20.7 Sharp % (Auto) 10.8 H Eos % (Auto) 0.2 Baso % (Auto) 0.2 Lymph # (Auto) 2.79 Sharp # (Auto) 1.5 H Eos # (Auto) 0.0 Baso # (Auto) 0.0 Abs Immat Gran (auto) 0.04 H Absolute Neuts (auto) 9.1 H Absolute Nucleated RBC 0.0 Nucleated RBC % 0.0 Sodium 137 Potassium 4.9 Chloride 104 Carbon Dioxide 29 Anion Gap 4 L BUN 20 H Creatinine 1.10 H Estim Creat Clear Calc 50 Estimated GFR 50 L Glucose 148 H POC Capillary Glucose 194 H Calcium 8.7 Discharge Plan Discharge Patient Disposition: Home, Self-Care Discharge Instructions: THIERRY KENDRICK M.D [facility], [place] [id number] [place] [address] POST-OPERATIVE DISCHARGE INSTRUCTIONS TOTAL KNEE ARTHROPLASTY 1. When resting, lie on back with leg elevated above hear to minimize swelling. Significant swelling could indicate a blood clot and if this occurs call the office (or go to the ER) to have a venous ultrasound. 2. Do exercise 5 times a day. 3. Do not sit with leg down except for meals. 4. Wound Care: Nursing will give additional dressings at discharge. Patient to change dressing at home 1 week from surgery, then maintain until seen in office. 5. May shower with dressing in place. Patient Instructions: Apixaban (By mouth), Precautions after Total Joint Replacement Surgery (DC), Knee Replacement (DC) Follow-up/Referrals: Thierry Kendrick MD [Physician] - Keep Reg. Scheduled Appt. Discharge Medications: New acetaminophen 500 mg Tablet 1,000 mg PO Q6HR Qty: 90 0RF Eliquis 2.5 mg Tablet 2.5 mg PO Q12HR Qty: 14 0RF cephalexin 500 mg Capsule 500 mg PO Q6HR Qty: 48 0RF sennosides-docusate sodium [Senokot-S] 8.6-50 mg Tablet 2 tab-cap PO BID Qty: 60 0RF oxycodone 5 mg Tablet 5 mg PO Q4HR Qty: 40 0RF polyethylene glycol 3350 [Miralax] 17 gram Powder In Packet 17 g PO QAM Qty: 30 0RF Continued semaglutide 1 mg/dose (4 mg/3 mL) Pen Injector 1 mg SUBCUT WEEKLY biotin 2,500 mcg Tablet 5,000 mcg PO DAILY cholecalciferol (vitamin D3) 25 mcg (1,000 unit) Capsule 25 mcg PO DAILY rosuvastatin 10 mg tablet 10 mg PO DAILY geriatric m
[2021-10-14 07:54] LABS: Glucose Point of Care 168 mg/dl (65-105)
[2021-10-14] MEDS: SENNA/DOCUSATE SODIUM TABLET 2 TAB PO (08:01)
[2021-10-14] MEDS: metFORMIN HCL XR 500 MG TAB.SR.24H PO (08:01)
[2021-10-14] MEDS: polyethylene glycoL 3350 17 GM POWD.PACK PO (08:01)
[2021-10-14] MEDS: hydroCHLOROthiazide 12.5 MG CAPSULE PO (08:01)
[2021-10-14] MEDS: APIXABAN 2.5 MG TABLET PO (08:01)
[2021-10-14] MEDS: FLUoxetine HCL 20 MG CAPSULE 40 MG PO (08:01)
[2021-10-14] MEDS: ROSUVASTATIN 10 MG TABLET PO (08:01)
[2021-10-14] MEDS: FAMOTIDINE 20 MG TABLET PO (08:01)
[2021-10-14] MEDS: CHOLECALCIFEROL 1,000 UNITS TABLET 1000 UNITS PO (08:02)
--- NOTE | 2021-10-14 08:30 | PM.IMPN ---
Progress Note: A&P Assessment and Plan (1) Status post right knee replacement: Code(s): Z96.651 - Presence of right artificial knee joint Status: Acute Assessment and Plan: POD 1 Postop care per Orthopedics Oxycodone 5 mg p.o. Q 4 scheduled and p.r.n. acetaminophen and 1000 mg p.o. scheduled q.6 Zofran 4 mg IV Q 4 p.r.n. for antiemetic Cefazolin x3 bags and vancomycin x2 bags Famotidine for GI prophylaxis Eliquis for DVT PT and OT (2) Osteoarthritis of right knee: Code(s): M17.11 - Unilateral primary osteoarthritis, right knee Status: Acute Assessment and Plan: See above (3) Supraventricular tachycardia: Code(s): I47.1 - Supraventricular tachycardia Status: Acute Assessment and Plan: Tele monitor shows sinus rhythm at this time Looks to have 1 episode of SVT unsustained on 10/13/21 Continue tele monitor Adjust medications if needed Continue Eliquis at 2.5 mg p.o. for right now per ortho (4) YOMI (obstructive sleep apnea): Code(s): G47.33 - Obstructive sleep apnea (adult) (pediatric) Status: Acute Assessment and Plan: Continue home CPAP with current settings (5) Hyperlipidemia: Code(s): E78.5 - Hyperlipidemia, unspecified Status: Acute Assessment and Plan: Continue home rosuvastatin 10 mg daily (6) Hypertension: Code(s): I10 - Essential (primary) hypertension Status: Acute Assessment and Plan: Current blood pressure 133/55 Continue lisinopril and hydrochlorothiazide Trend blood pressure Adjust therapy as indicated (7) Diabetes: Code(s): E11.9 - Type 2 diabetes mellitus without complications Status: Acute Assessment and Plan: Current glucose 148 Hold home oral medications Insulin sliding scale Accu-Cheks AC and HS Trend glucose Adjust therapy as indicated Time Spent With Patient Time with patient: Greater than 35 minutes Subjective Date/time seen: 10/14/21829 Interval history: 10/14/21829 Patient was sitting in the chair when I went into see her. She stated that her pain right now was a 2 to 3/10 just sitting. When she walks her pain does go up to a 6-7/10. She denies any chest pain, shortness a bit, nausea, vomiting, diarrhea, constipation, weakness or fatigue. Patient did state that she is unaware if she is constipated due to the fact that she has had a bowel movement however she does not feel like she has to go as well. Did educate patient on about pain medicine and constipation which the patient stated that she is being sent home stool softeners. 10/13/21 Khushboo Pierre is a 65 year old female with a past medical history of diabetes, hypertension, hyperlipidemia who is here for an elective right knee replacement.? Patient stated for year she has been having issues with her knee and pain.? Patient states she has been through all of his shots and even quit smoking so she get the surgery done.? Her surgery was performed today by Dr. Molina.? Currently patient is lying in bed and she is in severe pain rating it about an 8/10.? She does get done walking and was being stand due to sweats and nausea.? Talked to the nurse about getting her some pain meds and some anti nausea medication.? Patient denies any chest pain, shortness of breath, nausea, vomiting, diarrhea, constipation, weakness or fatigue at this time. Review of Systems Review of Systems: All systems reviewed & are unremarkable except as noted in HPI and below Exam Const: General: cooperative, healthy appearing, well developed, alert, awake and uncomfortable Nutritional Appearance: well nourished Orientation/consciousness: patient oriented x3 Limitations: physical limitations HENMT: Head: normal to inspection Ears: hearing grossly normal bilaterally General nose exam: Normal external nose present Mouth: Yes Normal oral a
[2021-10-14] MEDS: CEPHALEXIN 500 MG CAPSULE PO (09:28)
== END 2021-10-14 11:07 | disposition home or self-care (01) ==
LOC: ANHSURGERY 05:49 → ANH2MED 13:45
PROVIDERS: Physician Assistant Surgical; PCP Internal Medicine; Visit Provider Orthopaedic Surgery
PROC: (CPT 27447; principal; 2021-10-13 07:30)
DX: M17.11 Unilateral primary osteoarthritis, right knee (principal); I49.1 Atrial premature depolarization; E11.9 Type 2 diabetes mellitus without complications; I10 Essential (primary) hypertension; E78.2 Mixed hyperlipidemia; G47.33 Obstructive sleep apnea (adult) (pediatric); I47.1 Supraventricular tachycardia; Z79.84 Long term (current) use of oral hypoglycemic drugs; Z79.899 Other long term (current) drug therapy; Z85.528 Personal history of other malignant neoplasm of kidney; Z90.5 Acquired absence of kidney; Z87.891 Personal history of nicotine dependence; E66.9 Obesity, unspecified; Z68.32 Body mass index [BMI] 32.0-32.9, adult
CPT/HCPCS: 27447; 36415; 73560; 80048; 80307; 82040; 82948; 83036; 85025; 85610; 85730; 86850; 86900; 86901; 87070; 97110; 97116; 97161; 97165; 97530; A9270; C1713; C1776; J0171; J0690; J1100; J1170; J2270; J2370; J2405; J2704; J2795; J3010; J3370; J7030; J7120

== ENCOUNTER 2022-12-29 09:05 | Outpatient (CLI) | payer MEDICARE, MEDICAID, SELFPAY ==
--- NOTE | ~2022-12-29 | XR_ITS ---
EXAMINATION: XR chest 2V DATE: 12/29/2022 09:29 INDICATION: Wheezing and cough. TECHNIQUE: Frontal and lateral views of the chest were obtained. COMPARISON: Chest 2 views 05/08/2015 FINDINGS: There is no pneumonia, pleural effusion, pneumothorax. The heart size is normal. There are surgical clips in the abdomen. Again seen is a chronic compression fracture in upper thoracic spine. IMPRESSION: 1. No acute cardiopulmonary disease. Reviewed, dictated and finalized at location A.
[2022-12-29 09:22] LABS: Appearance Urine Clear (Clear); Basophils Absolute Auto 0.03 K/mm3 (0.00-0.10); Basophils Percent Auto 0.4 % (0.0-1.0); Bilirubin Urine Negative (Negative); Blood Urine Negative (Negative); Color Urine Light Yellow (Yellow); Eosinophils Absolute Auto 0.24 K/mm3 (0.02-0.50); Eosinophils Percent Auto 2.9 % (1.0-6.0); Glucose Urine UA Negative (Negative); Hematocrit 38.3 % (35.0-42.0); Hemoglobin 12.6 g/dL (11.7-13.8); Immature Granulocyte Absolute 0.02 K/mm3 (0.00-0.00); Immature Granulocyte Percent A 0.2 % (0.0-0.0); Ketones Urine Negative (Negative); Leukocyte Esterase Ur Negative (Negative); Lymphocytes Absolute Auto 3.12 K/mm3 (1.10-4.50); Lymphocytes Percent Auto 37.2 % (18.0-42.0); Mean Corpuscular HGB Conc 32.9 g/dL (32.0-36.0); Mean Corpuscular Hemoglobin 30.1 pg (27.0-31.0); Mean Corpuscular Volume 91.4 fL (78.0-102.0); Mean Platelet Volume 10.5 fl (9.2-11.8); Monocytes Percent Auto 7.2 % (2.0-11.0); Neutrophils Absolute Auto 4.4 K/mm3 (1.7-7.2); Neutrophils Percent Auto 52.1 % (50.0-70.0); Nitrate Urine Negative (Negative); Platelet Count Result 247 K/mm3 (150-420); Protein Urine Negative (Negative); Red Blood Count 4.19 M/mm3 (4.20-5.40); Red Cell Distribution Width 12.4 % (11.6-14.4); Urobilinogen Urine 0.2 mg/dL (0.2-1.0); White Blood Count 8.4 K/mm3 (4.8-10.8); pH Urine 6.5 (5.0-8.0)
[2022-12-29 09:29] LABS: Add Urine Microscopic? NO
[2022-12-29 09:39] LABS: Hemoglobin A1C 5.7 % (<5.7)
[2022-12-29 10:05] LABS: SARS-CoV-2 RNA PCR Negative (Negative)
[2022-12-29 11:06] LABS: Alanine Aminotransferase 18 U/L (14-59); Albumin Level 3.6 g/dL (3.4-5.0); Aspartate Amino Transferase 14 U/L (15-37); Bilirubin,Total 0.4 mg/dL (0.00-1.00); Blood Urea Nitrogen 25 mg/dL (7-18); Calcium 9.4 mg/dL (8.5-10.1); Chloride 105 mmol/L (98-108); Cholesterol 134 mg/dL (0-200); Estimated Glomerular Filt Rate 54; Glucose 125 mg/dL (70-99); HDL Direct 38 mg/dL (40-60); LDL Cholesterol Calculated 77 mg/dL (<130); Osmolality Calculated 301 mOsm/kg (285-295); Potassium 4.3 mmol/L (3.5-5.1); Sodium 143 mmol/L (136-145); Total Protein 7.3 g/dL (6.4-8.2); Triglycerides 95 mg/dL (0-150)
[2022-12-29 11:17] LABS: Alkaline Phosphatase 89 U/L (46-116); Anion Gap 10 mmol/L (8-16); Carbon Dioxide 28 mmol/L (21-32)
== END 2022-12-29 09:06 | disposition home or self-care (01) ==
LOC: CHSLAB 09:07
PROVIDERS: PCP Internal Medicine; Visit Provider Internal Medicine
DX: E11.9 Type 2 diabetes mellitus without complications (principal); J06.9 Acute upper respiratory infection, unspecified; I10 Essential (primary) hypertension
CPT/HCPCS: 36415; 71046; 80053; 80061; 81003; 83036; 84443; 85025; 87635

== ENCOUNTER 2023-07-20 12:59 | Outpatient (CLI) | payer MEDICARE, SELFPAY ==
--- NOTE | ~2023-07-20 | XR_ITS ---
EXAMINATION: XR knee LT 3V DATE: 07/20/2023 13:44 INDICATION: Left knee pain. TECHNIQUE: 3 views of left knee were obtained. COMPARISON: None. FINDINGS: There is lateral subluxation of patella. No fracture. There is moderate osteoarthritis of m edial compartment, mild osteoarthritis of lateral compartment, and severe osteoarthritis of patellofe moral compartment. There is a small knee joint effusion. IMPRESSION: 1. Severe left knee osteoarthritis. 2. Small left knee joint effusion. Reviewed, dictated and finalized at location E. ER AUTOMATIC SPINNING LATHE
--- NOTE | ~2023-07-20 | CT_ITS ---
EXAMINATION: CT lung screening DATE: 07/20/2023 13:37 INDICATION: Personal history of nicotine dependence, current smoker with 30 pack year history TECHNIQUE: Computed tomography (CT) of the chest was performed without intravenous contrast. The dose -length product (DLP) was 112.95 mGy-cm. Automated exposure control and iterative reconstruction tech Refresh Body were employed. COMPARISON: 12/07/2020 FINDINGS: There is mild emphysema. There is a stable 3 mm nodule of the left upper lobe on image 31. There is a new 3 mm nodule in the superior segment of the right lower lobe on image 53. The lungs are free of acute opacities. No pleural effusion or pneumothorax. No pathologically enlarged thoracic ly mph nodes are identified. The heart size is normal. Calcified coronary artery atherosclerosis is note d. There are changes of cholecystectomy. There is mild thoracic spondylosis. IMPRESSION: 1. Lung-RADS category 2: Benign appearance or behavior. Continue annual screening with noncontrast lo w-dose chest CT in 12 months. Reviewed, dictated and finalized at location L. ITY GELATIN MAKER IMPRESSION: 1. Lung-RADS category 2: Benign appearance or behavior. Continue annual screeni ng with noncontrast low-dose chest CT in 12 months.
--- NOTE | ~2023-07-20 | DEXA_ITS ---
Bone Density Report Name: GINO JAY Age: 67 Sex: Female Ethnicity: White Date of : 1955 Indication: postmenopausal; screening for osteoporosis; height loss; hysterectomy; Referring Provider: Brady Grissom Study: Bone densitometry was performed. Exam Date: July 20, 2023 Accession number: [id number] Bone Density: Region BMD T-score Z-score Classification AP Spine(L1-L4) 0.975 -0.7 1.4 Normal Femoral Neck (Left) 0.671 -1.6 0.1 Osteopenia Total Hip (Left) 0.842 -0.8 0.6 Normal Femoral Neck (Right) 0.697 -1.4 0.3 Osteopenia Total Hip (Right) 0.813 -1.1 0.4 Osteopenia Femoral Neck Mean 0.684 -1.5 0.2 Osteopenia Total Hip Mean 0.828 -0.9 0.5 Normal World Health Organization criteria for BMD impression classify patients as: Normal (T-score at or above -1.0), Osteopenia (T-score between -1.0 and -2.5), or Osteoporosis (T-score at or below -2.5). 10-year Fracture Risk(1): Major Osteoporotic Fracture 9.7% Hip Fracture 2.1% Reported Risk Factors: [place] (), Neck BMD=0.671, BMI=33.3, smoking (1) FRAX(R) Version 3.08. Fracture probability calculated for an untreated patient. Fracture probability may be lower if the patient has received treatment. Clinical Information Provided by Patient: Smokes Has used the following medications: Vitamin D, Calcium, multi Has the following medical conditions: Hysterectomy Patient maximum height was 66 Menopause Age: 34 No regular weight bearing exercise Does not regularly consume dairy products Drinks caffeinated beverages Onset of menses at age 13 Number of children 4 Impression: The patient has low bone mass, based on the Left Femoral Neck T-score. The patient has risk factors, including: smoking. Discussion: BONE DENSITY IS LOW AT ONE OR MORE SKELETAL SITES. This patient's lowest T-score is low at one or more skeletal sites. It meets the World Health Organization's (WHO) criteria for ?low bone mass? (T-score between -1.0 and -2.5). The patient's 10-year risk of fracture as calculated by FRAX is less than the threshold where pharmacological therapy is recommended by the National Osteoporosis Foundation (NOF). However, all treatment decisions require clinical judgment and consideration of individual patient factors, including patient preferences, comorbidities, previous drug use, risk factors not captured in the FRAX model (e.g., frailty, falls, vitamin D deficiency, increased bone turnover, interval significant decline in bone density) and possible under or overestimation of fracture risk by FRAX. The patient should follow a healthful lifestyle (good nutrition with adequate calcium and vitamin D, and appropriate weight-bearing exercise). Follow-Up: Consider repeating this study in 2 to 3 years to reassess this patient's status, or sooner if there is some new clinical indication. Repor
--- NOTE | ~2023-07-20 | MM_ITS ---
EXAMINATION: MM screening jamia BI w marisol HISTORY: Screening mammogram TECHNIQUE: Craniocaudal and mediolateral oblique 3-D tomosynthesis images were obtained and synthetic 2-D images were generated. CAD analysis was submitted and interpreted. COMPARISON: 12/07/2020 bilateral screening mammogram BREAST PARENCHYMAL COMPOSITION: The breasts are almost entirely fatty. FINDINGS: There is no evidence of suspicious mass, calcification, or architectural distortion to sugg est malignancy in either breast. There has been no suspicious interval change. IMPRESSION: 1. No mammographic evidence of malignancy. 2. Recommend routine screening mammography in one year. BI-RADS Category 1: Negative Reviewed, dictated and finalized at location A. SALESPERSON
== END 2023-07-20 13:00 | disposition home or self-care (01) ==
LOC: CHSIMG 13:00
PROVIDERS: PCP Internal Medicine; Visit Provider Internal Medicine
DX: Z12.31 Encounter for screening mammogram for malignant neoplasm of breast (principal); E11.9 Type 2 diabetes mellitus without complications; I10 Essential (primary) hypertension; M17.12 Unilateral primary osteoarthritis, left knee; E78.5 Hyperlipidemia, unspecified; M25.462 Effusion, left knee; M85.89 Other specified disorders of bone density and structure, multiple sites; M25.562 Pain in left knee; Z12.2 Encounter for screening for malignant neoplasm of respiratory organs; Z87.891 Personal history of nicotine dependence
CPT/HCPCS: 71271; 73562; 77063; 77067; 77080

== ENCOUNTER 2024-02-13 16:19 | Emergency (ER) | payer MEDICARE, MEDICAID, SELFPAY ==
[2024-02-13 16:19] VITALS: BP 153/74; PULSE 70; RESP 18; TEMP 36.7; O2SAT 98
--- NOTE | 2024-02-13 16:23 | ED.FEMALEGU ---
HPI - Female Genitourinary General Chief complaint: Urogenital-Female Stated complaint: HEMATURIA Time Seen by Provider: 02/13/24 16:22 Source: patient Mode of arrival: ambulatory Limitations: no limitations History of Present Illness HPI Narrative: Patient is a 68-year-old female with dark urine of blood for the past 2 days. She has 1 kidney after right renal cancer. She has normal creatinine according to her history. This has happened in the past and nothing abnormal was found. Painless. patient takes Eliquis for AFib. MD elicited complaint: other ( Dark blood urine for 2 days) Pertinent past history: other ( prior nephrectomy) Onset (ago): day(s) (2) Location of symptoms: none Severity: mild Female Urogenital Radiation: Non-Radiating Quality of pain: other ( No pain) Consistency: constant Vaginal discharge: none Vaginal bleeding: none Urinary symptoms: Hematuria Exacerbating factors: none Relieving factors: none Associated symptoms: denies other symptoms Treatment prior to arrival: none Sexual activity: No Patient : No Related Data Home Medications Medication Instructions Recorded Confirmed biotin 2,500 mcg tablet 5,000 mcg PO DAILY 09/30/21 02/13/24 cholecalciferol (vitamin D3) 25 25 mcg PO DAILY 09/30/21 02/13/24 mcg (1,000 unit) capsule geriatric multivitamin-min 1 tablet PO DAILY 09/30/21 02/13/24 rosuvastatin 10 mg tablet 10 mg PO DAILY 09/30/21 02/13/24 semaglutide 1 mg/dose (4 mg/3 mL) 2 mg subcut WEEKLY 10/06/21 02/13/24 subcutaneous pen injector Allergies Allergy/AdvReac Type Severity Reaction Status Date / Time codeine AdvReac Unknown Itching Verified 02/13/24 16:20 NSAIDS (Non-Steroidal AdvReac AVOIDS Verified 02/13/24 16:20 Anti-Inflamma BECAUSE SHE HAS ONLY 1 KIDNEY Review of Systems Review of Systems: All systems reviewed & are unremarkable except as noted in HPI and below Constitutional: Constitutional: Reports no additional constitutional complaints Eyes: Eyes: Reports no additional eye complaints ENT: Reports system reviewed and no additional complaints, except as documented Cardiovascular: Cardiovascular: Reports no additional cardiovascular complaints Respiratory: Respiratory: Reports no additional respiratory complaints Gastrointestinal: Gastrointestinal: Reports no additional gastrointestinal complaints Genitourinary: Genitourinary: Reports no additional female genitourinary complaints Musculoskeletal: Musculoskeletal: Reports no additional musculoskeletal complaints Integumentary/Breasts: Skin/Breast: Reports system reviewed and no additional complaints, except as docu Neurologic: Reports system reviewed and no additional complaints, except as documented Psychiatric: Psychiatric: Reports no additional psychiatric complaints Endocrine: Endocrine: Reports no additional endocrine complaints Hematologic/Lymphatic: Hematologic/Lymphatic: Reports no additional hematologic/lymphatic complaints Allergic/Immunologic: Allergic/Immunologic: Reports no additional allergic/immunologic complaints PMFSH Past Medical History Medical History Atrial premature depolarization Dermatofibroma Diabetes mellitus type 2, uncontrolled Essential (primary) hypertension History of chicken pox History of measles History of mumps Impaired glucose tolerance (oral) Internal derangement of right knee Mixed hyperlipidemia YOMI (obstructive sleep apnea) Supraventricular tachycardia Surgical History Surgical History History of bladder suspension procedure History of hysterectomy History of kidney removal cancer Hx of cholecystectomy S/P cardiac cath 2021, no blockages Family History Family History Mother Carcinoma of colon Father , car accident No problems noted.
[2024-02-13 16:41] LABS: Appearance Urine Turbid (Clear); Bilirubin Urine 1+ (Negative); Blood Urine 3+ (Negative); Glucose Urine UA Trace (Negative); Ketones Urine 1+ (Negative); Leukocyte Esterase Ur 2+ LEU/UL (Negative); Nitrate Urine Positive (Negative); Protein Urine 3+ (Negative); pH Urine 6.5 (5.0-8.0)
[2024-02-13 16:49] LABS: Basophils Absolute Auto 0.06 K/mm3 (0.00-0.10); Basophils Percent Auto 0.6 % (0.0-1.0); Eosinophils Absolute Auto 0.23 K/mm3 (0.02-0.50); Eosinophils Percent Auto 2.4 % (1.0-6.0); Hematocrit 39.4 % (35.0-42.0); Hemoglobin 13.1 g/dL (11.7-13.8); Immature Granulocyte Absolute 0.03 K/mm3 (0.00-0.00); Immature Granulocyte Percent A 0.3 % (0.0-0.0); Lymphocytes Absolute Auto 3.29 K/mm3 (1.10-4.50); Lymphocytes Percent Auto 34.6 % (18.0-42.0); Mean Corpuscular HGB Conc 33.2 g/dL (32-36); Mean Corpuscular Volume 87.2 fL (78.0-102.0); Mean Platelet Volume 10.2 fl (9.2-11.8); Monocytes Absolute Auto 0.72 K/mm3 (0.10-0.90); Monocytes Percent Auto 7.6 % (2.0-11.0); Neutrophils Absolute Auto 5.17 K/mm3 (1.70-7.20); Neutrophils Percent Auto 54.5 % (50.0-70.0); Platelet Count Result 249 K/mm3 (150-420); Red Blood Count 4.52 M/mm3 (4.20-5.40); Red Cell Distribution Width 11.8 % (11.6-14.4); White Blood Count 9.5 K/mm3 (4.8-10.8)
[2024-02-13 16:54] LABS: Add Urine Microscopic? YES; Bacteria Urine 1+ /hpf; Color Urine Dark Red (Yellow); RBC Urine >75 /hpf (0-2); Squamous Epithelial Cell Urine Few /hpf (Few)
[2024-02-13 17:03] LABS: Prothrombin Time 10.6 Seconds (9.50-12.1)
[2024-02-13 17:36] LABS: Alanine Aminotransferase 33 U/L (14-59); Albumin Level 3.3 g/dL (3.4-5.0); Alkaline Phosphatase 111 U/L (46-116); Anion Gap 11 mmol/L (4-12); Aspartate Amino Transferase < 10 U/L (15-37); Bilirubin,Total 0.2 mg/dL (0.00-1.00); Blood Urea Nitrogen 25 mg/dL (7-18); Calcium 9.2 mg/dL (8.5-10.1); Carbon Dioxide 26 mmol/L (21-32); Chloride 101 mmol/L (98-108); Estimated CRCL calculation 49 ml/min; Estimated Glomerular Filt Rate 45; Glucose 151 mg/dL (70-99); Osmolality Calculated 293 mOsm/kg (285-295); Potassium 3.7 mmol/L (3.5-5.1); Sodium 138 mmol/L (136-145); Total Protein 7.4 g/dL (6.4-8.2)
[2024-02-13] MEDS: CEPHALEXIN 500 MG CAPSULE PO (17:50)
--- NOTE | 2024-02-13 17:55 | PC.NURSE ---
PT VERBALIZED UNDERSTANDING OF THE NEED TO FOLLOW UP WITH PMD TOMORROW TO GET OUTPT TESTING SCHEDULED. PT DENIES ANY PAIN.
[2024-02-13 18:00] VITALS: BP 158/70; PULSE 68; RESP 16; O2SAT 98
--- NOTE | 2024-02-19 13:09 | PC.NURSE ---
FINAL URINE CULTURE REPORT: MIXED GENITAL CLAU ISOLATED, NO FURTHER ORGANISM IDENTIFIED, NO FURTHER ACTION OR TREATMENT NEEDED.
== END 2024-02-13 18:00 | disposition home or self-care (01) ==
PROVIDERS: Emergency Provider Emergency Medicine; PCP Internal Medicine
DX: N39.0 Urinary tract infection, site not specified (principal); R31.0 Gross hematuria; I48.91 Unspecified atrial fibrillation; I10 Essential (primary) hypertension; E11.9 Type 2 diabetes mellitus without complications; E78.2 Mixed hyperlipidemia; Z85.528 Personal history of other malignant neoplasm of kidney; Z87.891 Personal history of nicotine dependence
CPT/HCPCS: 36415; 80053; 81001; 85025; 85610; 85730; 87086; 87088; 99283; A9270

== ENCOUNTER 2024-03-05 07:41 | Outpatient (CLI) | payer MEDICARE, MEDICAID, SELFPAY ==
--- NOTE | ~2024-03-05 | US_ITS ---
EXAM: RENAL ULTRASOUND HISTORY: HEMATURIA COMPARISON: Reference is made to a CT examination of the abdomen and pelvis dated 08/02/2017. FINDINGS: RIGHT KIDNEY: 13.6 x 5.8 x 7.0 cm. The parenchyma of the right kidney is unremarkable. No hydronephrosis is present. A single bulky calculus is identified within the lower pole of the right kidney measuring 15 mm in gr eatest dimension. LEFT KIDNEY: Surgically absent. BLADDER: Only minimally distended, limiting its evaluation. IMPRESSION: No hydronephrosis or obstructing renal calculi. Bulky calculus within the lower pole of the right kidney, as detailed above. Reviewed, dictated and finalized at location A.
== END 2024-03-05 07:42 | disposition home or self-care (01) ==
LOC: CHSIMG 07:43
PROVIDERS: PCP Internal Medicine; Visit Provider Internal Medicine
DX: R31.9 Hematuria, unspecified (principal); N20.0 Calculus of kidney
CPT/HCPCS: 76775

== ENCOUNTER 2024-04-02 08:59 | Outpatient (CLI) | payer MEDICARE, MEDICAID, SELFPAY ==
--- NOTE | ~2024-04-02 | CT_ITS ---
Non-contrast CT scan of the Abdomen and Pelvis Clinical indication: Kidney stone Technique: 2.5 mm axial scans were obtained through the abdomen and pelvis without intravenous or or al contrast. Dose reduction technique was used on this scan by utilizing automated exposure control a nd iterative reconstruction technique. The dose-length product (DLP) was 274.97 mGy-cm. Findings: Images through the lung bases reveal no abnormalities. There is a 1 cm round, nonobstructing right lower pole renal stone. Status post left nephrectomy. No right ureteral stone or right hydronephrosis. The liver, spleen, pancreas, and adrenals appear normal. Cholecystectomy clips are present. There are atherosclerotic calcifications of the aorta. . There is no evidence of bowel obstruction. Images through the pelvis were performed. There is no evidence of ascites or lymphadenopathy. Urinary bladder unremarkable. Status post hysterectomy. No pelvic mass seen. Impression: 1 cm nonobstructing right renal stone. Status post left nephrectomy, cholecystectomy, hysterectomy. Reviewed, dictated and finalized at [facility]. END CAREGIVER Impression: 1 cm nonobstructing right renal stone. Status post left nephrectomy, cholecystectomy, hysterectomy.
--- NOTE | ~2024-04-02 | XR_ITS ---
XR abdomen/kub 1V Ordering provider: Morgan Thao MD History: . HX KIDNEY STONE,PT DOESNT HAVE LT KIDNEY,HX MULTIPLE SURGERY . Comparison: None. FINDINGS: BOWEL: Nonobstructive bowel gas pattern. ORGANOMEGALY: None. SIGNIFICANT PATHOLOGIC CALCIFICATIONS: Right kidney stone measuring 1.2 cm. OTHER: No free air is seen under the diaphragm. Postoperative changes in the left paraspinal area and status post cholecystectomy. Pubic symphysitis. IMPRESSION: NO ACUTE ABDOMINAL FINDINGS. Right kidney stone. Reviewed, dictated and finalized at location A. USION DIE COORDINATOR
== END 2024-04-02 09:00 | disposition home or self-care (01) ==
PROVIDERS: PCP Internal Medicine; Visit Provider Urology
DX: N20.0 Calculus of kidney (principal)
CPT/HCPCS: 74018; 74176

== ENCOUNTER 2024-08-13 11:00 | Outpatient (CLI) | payer MEDICARE, MEDICAID, SELFPAY ==
--- NOTE | ~2024-08-13 | XR_ITS ---
Clinical Indication: Shortness of breath PA and lateral views of the chest: Comparison: 12/29/2022 Findings: The lungs are clear, without evidence of focal consolidation or pleural effusion. Cardiome diastinal silhouette is within normal limits. Bones and soft tissues are unremarkable. Impression: Normal chest. Reviewed, dictated and finalized at location . Impression: Normal chest.
--- NOTE | 2024-08-13 11:28 | ECG_ITS ---
Test Date: 2024-08-13 11:47:34 Measurements Intervals [place] Rate: 63 P: 72 MA: 147 QRS: 76 QRSD: 86 T: 55 QT: 395 QTc: 405 Interpretive Statements SINUS RHYTHM NORMAL ECG No previous ECG available for comparison Electronically Signed On 08-13-2024 12:26:16 CDT by Joe Abebe D.O.
[2024-08-13 11:42] LABS: Hematocrit 42.2 % (35.0-42.0); Hemoglobin 14.1 g/dL (11.7-13.8); Mean Corpuscular HGB Conc 33.4 g/dL (32-36); Mean Corpuscular Hemoglobin 29.6 pg (27.0-31.0); Mean Corpuscular Volume 88.5 fL (78.0-102.0); Mean Platelet Volume 10.3 fl (9.2-11.8); Platelet Count Result 272 K/mm3 (150-420); Red Blood Count 4.77 M/mm3 (4.20-5.40); Red Cell Distribution Width 11.4 % (11.6-14.4); White Blood Count 8.9 K/mm3 (4.8-10.8)
[2024-08-13 11:48] LABS: Add Urine Microscopic? NO; Appearance Urine Clear (Clear); Bilirubin Urine Negative (Negative); Blood Urine Negative (Negative); Color Urine Yellow (Yellow); Glucose Urine UA Negative (Negative); Ketones Urine Negative (Negative); Leukocyte Esterase Ur Negative (Negative); Nitrate Urine Negative (Negative); Protein Urine Negative (Negative); Urobilinogen Urine 0.2 mg/dL (0.2-1.0); pH Urine 5.5 (5.0-8.0)
[2024-08-13 11:55] LABS: D Dimer 0.48 mg/L (0.19-0.50)
[2024-08-13 12:23] LABS: Influenza A QL RT-PCR Negative (Negative); Influenza B QL RT-PCR Negative (Negative); RSV RNA, RT-PCR Negative (Negative); SARS-CoV-2 RNA PCR Negative (Negative)
--- OUTSIDE RECORDS SUMMARY | 2024-08-13 12:24 | XMS_ITS | Continuity of Care Document ---
Author Organization [facility]. If a dditional information is needed, contact Health Information Management at [phone] [address] [place] [address] Phone Care Team Providers Care Lead Applier Name Role Phone Unavailable Unavailable Unavailable Unavailable Unavailable Unavailable Unavailable Unavailable Unavailable Unavailable Unavailable Unavailable Unavailable Unavailable Unavailable Unavailable Unavailable Unavailable Unavailable Unavailable Unavailable Unavailable Unavailable Problems Atrial fibrillation Onset:21-Jun-2021 KUMRA Tachycardia Onset:20-Jun-2021 Brandon Rosado MD Palpitations Onset:20-Jun-2021 Brandon Rosado MD Depression, unspecified Mental Status Cognitive function finding 20-Jun-2021 Functional Status Functional finding 20-Jun-2021 Functional finding 20-Jun-2021 Allergies and Adverse Reactions No Known Allergies(Allergy) Onset: 19-Jun-2021 No Known Allergies(Allergy) Medications fluoxetine HCl;fluoxetine HC l Quantity:90 Start:18-Oct-2023 Comments:fluoxetine HCl lisinopril;lisinopril Quantity:90 Start:08-Oct-2023 Comments:lisinopril metformin HCl;metformin HCl Quantity:90 Start:28-Aug-2023 Comments:metformin HCl ozempic;Ozempic Quantity:9 Start:15-Aug-2023 Comments:Ozempic Eliquis;Eliquis Quantity:60 Start:26-Jul-2023 Comments:Eliquis rosuvastatin calcium;rosuvastatin calcium Quantity:90 Start:29-Dec-2022 Comments:rosuvastatin calcium lisinopril 5 MG Oral Tablet;2.5 MG ORAL DAILY Quantity:1 Drew Mcconnell MD Start:21-Jun-2021 Status:Discontinued Comments:[id number] Eliquis 5MG (NF);5 MG ORAL BID Start:21-Jun-2021 Comments:5 MG PO BID lisinopril 5 MG Oral Tablet;2.5 MG ORAL DAILY Start:21-Jun-2021 Comments:2.5 MG PO DAILY LOPRESSOR 25 MG;12.5 MG ORAL BID Start:21-Jun-2021 Comments:12.5 MG PO BID atorvastatin 40 MG Oral Tablet [Lipitor];40 MG ORAL BEDTIME Quantity:1 Drew Mcconnell MD Start:20-Jun-2021 Status:Discontinued Comments:[id number] 24 HR buPROPion hydrochlorid e 150 MG Extended Release Oral Tablet;300 MG ORAL DAILY Quantity:2 Rex Frazier MD Start:20-Jun-2021 Status:Discontinued Comments:[id number] FLUoxetine 20 MG Oral Capsule;40 MG ORAL DAILY Quantity:2 Rex Frazier MD Start:20-Jun-2021 Status:Discontinued Comments:[id number] Administration Instructions:!!ATTENTION!!THIS MEDICATION CAN CONTRIBUTE TO RISK OF FALLS metoprolol tartrate 25 MG Oral Tablet;12.5 MG ORAL BID Quantity:1 Rex Frazier MD Start:20-Jun-2021 Status:Discontinued Comments:[id number] Administration Instructions:THIS IS 1/2 OF 25MG TABLET Eliquis 5MG (NF);5 MG ORAL BID Quantity:1 Drew Mcconnell MD Start:20-Jun-2021 Status:Discontinued Comments:[id number] insulin lispro 100 UNT/ML Injectable Solution [HumaLOG];[id number] Administration Instructions:Standard Correction Scale Quantity:0 Rex Frazier MD Start:20-Jun-2021 Status:Discontinued Comments:[id number] Administration Instructions:Standard Correction Scale 1 ML enoxaparin sodium 100 MG/ML Prefilled Syringe [Lovenox];90 MG SUBCUTANEOUS Q12H Quantity:1 Rex Frazier MD Start:20-Jun-2021 Status:Discontinued Comments:Provider Administration Instructions: NOTE DOSE Patient should be lying down. Inject deep subcutaneously at45 to 90 degree angle into a fold of skin in any of thefollowing locations:Left anterolateral or left posterolateral abdominal wallRight anterolateral or right posterolateral abdominal wallAlternate the injection site with each injection. Do not rubthe injection site after administration.To avoid loss of drug when using the 30 mg or 40 mg 50 ML glucose 500 MG/ML Injection;50 ML INTRAVENOUS PRN Quantity:1 Rex Frazier MD Start:20-Jun-2021 Status:Discontinued Comments:[id number] Administration Instructions:Hypoglycemia Mgmt glucose 4000 MG Chewable Tablet;12 GM ORAL ASDIR Quantity:3 Rex Frazier MD Start:20-Jun-2021 Status:Discontinued Comments:[id number] Administration Instructions:If patient is alert and responsive. Give one dose 12GMWait 15 minutes and recheck BG.If still<70, may repeat dose x1. If no change in BG contactprovider ondansetron 2 MG/ML Injectable Solution [Zofran];4 MG INTRAVENOUS Q6H PRN Quantity:1 Rex Frazier MD Start:20-Jun-2021 Status:Discontinued Comments:[id number] acetaminophen 325 MG Oral Tablet;650 MG ORAL Q6H PRN Quantity:2 Rex Frazier MD Start:20-Jun-2021 Status:Discontinued Comments:[id number] Administration Instructions:4 GRAMS MAX DAILY DOSE PROzac 40 MG;40 MG ORAL GAETANO Y Start:19-Jun-2021 Comments:40 MG PO DAILY ZESTRIL 40 MG;40 MG ORAL DAILY Start:19-Jun-2021 Status:Discontinued Comments:40 MG PO DAILY GLUCOPHAGE XR;500 MG ORAL DAILY Start:19-Jun-2021 Comments:500 MG PO DAILY ONE-A-DAY ESSENTIAL;1 TAB ORAL DAILY Start:19-Jun-2021 Comments:1 TAB PO DAILY WELLBUTRIN XL 300 MG;300 MG ORAL DAILY Start:19-Jun-2021 Comments:300 MG PO DAILY MICROZIDE;12.5 MG ORAL DAILY Start:19-Jun-2021 Status:Discontinued Comments:12.5 MG PO DAILY furosemide 20 MG Oral Tablet [Lasix];20 MG ORAL BID Start:19-Jun-2021 Status:Discontinued Comments:20 MG PO BID Social History Smoking Status Ex-smoker Recorded: 20-Jun-2021 Ex-smoker Results EXTRA URINE SPECIMEN Ordered On:29-Nov-2023 15:48 COMMENTResults Wendy rivera - See Detailed Notes(Normal) Comments:WE RECEIVED AN EXTRA SPECIMEN WITH NO TEST REQUESTED.IF ANY TEST IS DESIRED FOR THIS SPECIMEN PLEASE CALLCLIENT SERVICES AND ADVISE. CBC (INCLUDES DIFF/PLT) Ordered On:27-Nov-2023 08:17 WHITE BLOOD CELL COUNT8.49218(Normal) Range:3.8-10.8 MPV11.67568(Normal) Range:7.5-12 .5 ABSOLUTE HTETKQBOTMD9824.03274(Normal ) Range:0655-5544 ABSOLUTE EJHNAFHHGCH0476.49877(Normal ) Range:850-3900 ABSOLUTE WWEAEKJAK124.67317(Normal) Range:200-950 ABSOLUTE RCFDVSPOEIL990.31324(Normal) Range:15-500 ABSOLUTE HAQXERXRX90.12565(Normal) Range:0-200 SIFNSCPQJKM35.21408(Normal) RVMTEECEQYJ65.93575(Normal) MONOCYTES6.38008(Normal) EOSINOPHILS1.18281(Normal) RED BLOOD CELL COUNT4.99793(Normal) Range:3.8-5.1 BASOPHILS0.17544(Normal) JYFOTCTZZM80.54180(Normal) Range :11.7-15.5 TVJNNGVNIJ97.47447(Normal) Range :35-45 MCV90.95896(Normal) Range:80-100 MCH30.09676(Normal) Range:27-33 MCHC33.14581(Normal) Range:32-36 RDW12.73569(Normal) Range:11-15 PLATELET CKHSS263.43740(Normal) Range:140-400 COMPREHENSIVE METABOLIC PANEL Ordered On:27-Nov-2023 08:17 VGTULJV879.54882(Abnormal) Ran ge:65-99 Comments:Fasting reference intervalFor someone without known diabetes, a glucosevalue >125 mg/dL indicates that they may havediabetes and this should be confirmed with afollow-up test. CALCIUM9.41945(Normal) Range:8.6 -10.4 PROTEIN, TOTAL7.35043(Normal) Range:6.1-8.1 ALBUMIN4.95779(Normal) Range:3.6 -5.1 GLOBULIN3.73989(Normal) Range:1. 9-3.7 ALBUMIN/GLOBULIN RATIO1.96931(Normal) Range:1-2.5 BILIRUBIN, TOTAL0.30532(Normal) Range:0.2-1.2 ALKALINE SKTFVCQXRZJ86.93813(Normal) Range:37-153 AST13.36445(Normal) Range:10-35 ALT21.09481(Normal) Range:6-29 UREA NITROGEN (BUN)16.35539(Normal) Range:7-25 CREATININE0.09905(Normal) Range: 0.5-1.05 EGFR74.43611(Normal) Range:> OR = 60 BUN/CREATININE RATIO SEE NOTE:(Normal) Range:6-22 Comments:Not Reported: BUN and Creatinine are withinreference range. TAYZCK275.08020(Normal) Range:13 5-146 POTASSIUM3.39968(Normal) Range:3 .5-5.3 PYMPVXQR770.91897(Normal) Range: 98-110 CARBON ZQBSPJS42.46287(Normal) Range:20-32 URINALYSIS MICROSCOPIC Ordered On:27-Nov-2023 07:58 CRYSTALSTNP(Normal) Comments:T EST(S) NOT PERFORMED:CRYSTALSNOTETEST NOT PERFORMEDNo suitable specimen received.Please review the testrequirements attestdirectory.WanderiodiagnKIHEITAI CULTURE, URINE, ROUTINE Ordered On:27-Nov-2023 07:55 CULTURE, URINE, ROUT INESEE NOTE(Normal) Comments:CULTURE, URINE, ROUTINEMicro Number: [id number] Status: FinalSpecimen Source: Not givenSpecimen Quality: AdequateResult: No Growth UA Dipstick Visual w/o Micro Ordered On:27-Nov-2023 Comments:ictotest negative 27-Nov-2023 07:42 Protein Test strip Q l (U)Positive 100mg/dL(Abnormal) Range:Negative Ketones Test strip Q l (U)Negative(Normal) Range:Negative Glucose Test strip Q l (U)Negative(Normal) Range:Negative Blood Visual Ql (U)P ositive Large(Abnormal) Range:Negative Bilirubin Test strip Ql (U)Positive Small(Abnormal) Range:Negative Leukocyte esterase T est strip Ql (U)Negative(Normal) Range:Negative Nitrite Test strip Q l (U)Negative(Normal) Range:Negative pH Test strip (U)6.5(Normal) Ran ge:5 ? 8.5 Specific gravity Machelle t strip (U) [Rel density]>=1.030(Normal) Range:1.005 ? 1.[address] rip Ql (U)Positive 4.0 E.U/dL(Abnormal) Range:0.2 ? 1 Vital Signs 27-Nov-2023 07:33 BP Yetcmkqb199hp[Hg] BP Ojxliqakq89hg[Hg] Pulse98{beats}/min Bvltdlbednr09s O2 SAT95% BMI32.4kg/m2 Uzwbxp17jc Mmejka283sp 27-Nov-2023 07:33 BP Wzxherxq287fb[Hg] BP Xvkzfwylc95te[Hg] Pulse98{beats}/min Yqgtcnljhfq49x O2 SAT95% BMI32.4kg/m2 Wywfjd28st Obwsec116om Encounters Ambulatory Encounter Diagnosis:Hematuria syndrome 27-Nov-2023 KEYONA HARRINGTON (Attending) [facility] Goal Instructions Future Appointment Date Keyona Harrington Phone: [phone] Address: [address] [place] [id number] TESTS Test Name Status Date UA Dipstick Visual w/o Micro [22281] Complete 11/27/2023 CULTURE, URINE, ROUTINE [395] Complete URINALYSIS MICROSCOPIC [8563] Complete EXTRA URINE SPECIMEN [XUAT] Complete 11/28 COMPREHENSIVE METABOLIC PANEL [80370] Complete 11/27/2023 CBC (INCLUDES DIFF/PLT) [7806] Complete
[2024-08-13 12:27] LABS: Alanine Aminotransferase 52 U/L (14-59); Albumin Level 3.4 g/dL (3.4-5.0); Alkaline Phosphatase 90 U/L (46-116); Anion Gap 10 mmol/L (4-12); Aspartate Amino Transferase 35 U/L (15-37); Bilirubin,Total 0.4 mg/dL (0.00-1.00); Blood Urea Nitrogen 39 mg/dL (7-18); Calcium 9.5 mg/dL (8.5-10.1); Carbon Dioxide 28 mmol/L (21-32); Chloride 99 mmol/L (98-108); Creatine Kinase 538 U/L (26-192); Estimated Glomerular Filt Rate 40; Free T4 Free Thyroxine 1.25 ng/dL (0.76-1.46); Glucose 110 mg/dL (70-99); NT Pro B Type Natriuretic Pept 94 pg/mL (0-125); Osmolality Calculated 294 mOsm/kg (285-295); Potassium 3.9 mmol/L (3.5-5.1); Sodium 137 mmol/L (136-145); Thyroid Stimulating Hormone 3.04 uIU/mL (0.36-3.74); Total Protein 7.9 g/dL (6.4-8.2); Troponin I 7.9 ng/L (0.00-60.4); Vitamin B12 895 pg/mL (193-986)
[2024-08-17 04:23] LABS: Methylmalonic Acid 257 nmol/L (69-390)
== END 2024-08-13 11:01 | disposition home or self-care (01) ==
LOC: CHSLAB 11:06
PROVIDERS: PCP Internal Medicine; Visit Provider Internal Medicine
DX: R06.00 Dyspnea, unspecified (principal); R41.3 Other amnesia; I48.91 Unspecified atrial fibrillation; R41.89 Other symptoms and signs involving cognitive functions and awareness; E11.9 Type 2 diabetes mellitus without complications; Z86.79 Personal history of other diseases of the circulatory system
CPT/HCPCS: 36415; 71046; 80053; 81003; 82550; 82553; 82607; 83880; 83921; 84439; 84443; 84481; 84484; 85027; 85380; 87637; 93005

== ENCOUNTER 2024-08-15 09:00 | Outpatient (CLI) | payer MEDICARE, MEDICAID, SELFPAY | END 2024-08-15 09:01 | disposition home or self-care (01) | PROVIDERS: PCP Internal Medicine; Visit Provider Internal Medicine | DX: R06.00 Dyspnea, unspecified (principal); R94.2 Abnormal results of pulmonary function studies | CPT/HCPCS: 94060; 94726; 94729 ==

== ENCOUNTER 2024-08-27 08:57 | Outpatient (CLI) | payer MEDICARE, MEDICAID, SELFPAY ==
--- OUTSIDE RECORDS SUMMARY | 2024-08-27 09:26 | XMS_ITS | Continuity of Care Document ---
Author Organization [facility]. If a dditional information is needed, contact Health Information Management at [phone] [address] [place] [address] Phone Care Team Providers Care Media Director Name Role Phone Unavailable Unavailable Unavailable Unavailable [...] metformin HCl;metformin HCl Quantity:90 Start:28-Aug-2023 Comments:metformin HCl Ozempic;Ozempic Quantity:9 Start:15-Aug-2023 Comments:Ozempic Eliquis;Eliquis Quantity:60 Start:26-Jul-2023 Comments:Eliquis rosuvastatin calcium;rosuvastatin calcium Quantity:90 Start:29-Dec-2022 Comments:rosuvastatin calcium lisinopril 5 MG Oral Tablet;2.5 MG ORAL DAILY Quantity:1 Drew Mcconnell MD Start:21-Jun-2021 Status:Discontinued Comments:[id number] lisinopril 5 MG Oral Tablet;2.5 MG ORAL DAILY Start:21-Jun-2021 Comments:2.5 MG PO DAILY LOPRESSOR 25 MG;12.5 MG ORAL BID Start:21-Jun-2021 Comments:12.5 MG PO BID Eliquis 5MG (NF);5 MG ORAL BID Start:21-Jun-2021 Comments:5 MG PO BID atorvastatin 40 MG Oral Tablet [Lipitor];40 MG ORAL BEDTIME Quantity:1 Drew Mcconnell MD Start:20-Jun-2021 Status:Discontinued Comments:[id number] metoprolol tartrate 25 MG Oral Tablet;12.5 MG ORAL BID Quantity:1 Rex Frazier MD Start:20-Jun-2021 Status:Discontinued Comments:[id number] Administration Instructions:THIS IS 1/2 OF 25MG TABLET Eliquis 5MG (NF);5 MG ORAL BID Quantity:1 Drew Mcconnell MD Start:20-Jun-2021 Status:Discontinued Comments:[id number] 24 HR buPROPion hydrochlorid e 150 MG Extended Release Oral Tablet;300 MG ORAL DAILY Quantity:2 Rex Frazier MD Start:20-Jun-2021 Status:Discontinued Comments:[id number] FLUoxetine 20 MG Oral Capsule;40 MG ORAL DAILY Quantity:2 Rex Frazier MD Start:20-Jun-2021 Status:Discontinued Comments:[id number] Administration Instructions:!!ATTENTION!!THIS MEDICATION CAN CONTRIBUTE TO RISK OF FALLS insulin lispro 100 UNT/ML Injectable Solution [HumaLOG];[id number] Administration Instructions:Standard Correction Scale Quantity:0 Rex Frazier MD Start:20-Jun-2021 Status:Discontinued Comments:[id number] Administration Instructions:Standard Correction Scale 1 ML enoxaparin [...] using the 30 mg or 40 mg ondansetron 2 MG/ML Injectable Solution [Zofran];4 MG INTRAVENOUS Q6H PRN Quantity:1 Rex Frazier MD Start:20-Jun-2021 Status:Discontinued Comments:[id number] 50 ML glucose 500 MG/ML Injection;50 ML INTRAVENOUS PRN Quantity:1 Rex Frazier MD Start:20-Jun-2021 Status:Discontinued Comments:[id number] Administration Instructions:Hypoglycemia Mgmt acetaminophen 325 MG Oral Tablet;650 MG ORAL Q6H PRN Quantity:2 Rex Frazier MD Start:20-Jun-2021 Status:Discontinued Comments:[id number] Administration Instructions:4 GRAMS MAX DAILY DOSE glucose 4000 MG Chewable Tablet;12 GM ORAL ASDIR Quantity:3 Rex Frazier MD Start:20-Jun-2021 Status:Discontinued Comments:[id number] Administration Instructions:If patient is alert and responsive. Give one dose 12GMWait 15 minutes and recheck BG.If still<70, may repeat dose x1. If no change in BG contactprovider GLUCOPHAGE XR;500 MG ORAL DAILY Start:19-Jun-2021 Comments:500 MG PO DAILY WELLBUTRIN XL 300 MG;300 MG ORAL DAILY Start:19-Jun-2021 Comments:300 MG PO DAILY PROzac 40 MG;40 MG ORAL GAETANO Y Start:19-Jun-2021 Comments:40 MG PO DAILY ZESTRIL 40 MG;40 MG ORAL DAILY Start:19-Jun-2021 Status:Discontinued Comments:40 MG PO DAILY MICROZIDE;12.5 MG ORAL DAILY Start:19-Jun-2021 Status:Discontinued Comments:12.5 MG PO DAILY furosemide 20 MG Oral Tablet [Lasix];20 MG ORAL BID Start:19-Jun-2021 Status:Discontinued Comments:20 MG PO BID ONE-A-DAY ESSENTIAL;1 TAB ORAL DAILY Start:19-Jun-2021 Comments:1 TAB PO DAILY Social History Smoking Status Ex-smoker Recorded: 20-Jun-2021 Ex-smoker Results EXTRA URINE SPECIMEN Ordered On:29-Nov-2023 15:48 COMMENTResults Wendy rivera - See Detailed Notes(Normal) Comments:WE RECEIVED AN EXTRA SPECIMEN WITH NO TEST REQUESTED.IF ANY TEST IS DESIRED FOR THIS SPECIMEN PLEASE CALLCLIENT SERVICES AND ADVISE. CBC (INCLUDES DIFF/PLT) Ordered On:27-Nov-2023 08:17 WHITE BLOOD CELL COUNT8.35795(Normal) Range:3.8-10.8 MPV11.56972(Normal) Range:7.5-12 .5 ABSOLUTE QGGOOGRZWSV5156.32042(Normal ) Range:8504-0372 ABSOLUTE DGFRCRLGHSL5482.42352(Normal ) Range:850-3900 ABSOLUTE CDFRJXUPI267.37961(Normal) Range:200-950 ABSOLUTE ZPTQPKXSPXC464.34617(Normal) Range:15-500 ABSOLUTE BSWOWVUIV90.28788(Normal) Range:0-200 SHSTYHVIVKP66.62367(Normal) MULNIVCUINO65.65341(Normal) MONOCYTES6.03353(Normal) EOSINOPHILS1.62370(Normal) RED BLOOD CELL COUNT4.39410(Normal) Range:3.8-5.1 BASOPHILS0.59339(Normal) SKDVDIORKQ80.32854(Normal) Range :11.7-15.5 RGZQHACGRT92.27696(Normal) Range :35-45 MCV90.54260(Normal) Range:80-100 MCH30.01559(Normal) Range:27-33 MCHC33.17698(Normal) Range:32-36 RDW12.71653(Normal) Range:11-15 PLATELET LFBXA867.73947(Normal) Range:140-400 COMPREHENSIVE METABOLIC PANEL Ordered On:27-Nov-2023 08:17 KPYWTNH202.15762(Abnormal) Ran ge:65-99 Comments:Fasting reference intervalFor someone without known diabetes, a glucosevalue >125 mg/dL indicates that they may havediabetes and this should be confirmed with afollow-up test. CALCIUM9.61240(Normal) Range:8.6 -10.4 PROTEIN, TOTAL7.62712(Normal) Range:6.1-8.1 ALBUMIN4.70158(Normal) Range:3.6 -5.1 GLOBULIN3.67236(Normal) Range:1. 9-3.7 ALBUMIN/GLOBULIN RATIO1.54728(Normal) Range:1-2.5 BILIRUBIN, TOTAL0.85440(Normal) Range:0.2-1.2 ALKALINE FJXTYCLPEMZ63.81880(Normal) Range:37-153 AST13.86451(Normal) Range:10-35 ALT21.31231(Normal) Range:6-29 UREA NITROGEN (BUN)16.23196(Normal) Range:7-25 CREATININE0.16653(Normal) Range: 0.5-1.05 EGFR74.02469(Normal) Range:> OR = 60 BUN/CREATININE RATIO SEE NOTE:(Normal) Range:6-22 Comments:Not Reported: BUN and Creatinine are withinreference range. BZHUQA711.89445(Normal) Range:13 5-146 POTASSIUM3.34044(Normal) Range:3 .5-5.3 FRXURNXQ752.85098(Normal) Range: 98-110 CARBON KNTDKCX54.05140(Normal) Range:20-32 URINALYSIS MICROSCOPIC Ordered On:27-Nov-2023 07:58 CRYSTALSTNP(Normal) Comments:T EST(S) NOT PERFORMED:CRYSTALSNOTETEST NOT PERFORMEDNo suitable specimen received.Please review the testrequirements attestdirectory.DacentecdiagnPerfect [employer] CULTURE, URINE, ROUTINE Ordered On:27-Nov-2023 07:55 CULTURE, URINE, ROUT INESEE NOTE(Normal) Comments:CULTURE, URINE, ROUTINEMicro Number: [id number] Status: FinalSpecimen Source: Not givenSpecimen Quality: AdequateResult: [...] ? 1 Vital Signs 27-Nov-2023 07:33 BP Xzaonxse534pc[Hg] BP Dujkjgorg51qa[Hg] Pulse98{beats}/min Eftrkllmcmy74c O2 SAT95% BMI32.4kg/m2 Ovmilg95jj Mszqcy833yu 27-Nov-2023 07:33 BP Lchshigg175ah[Hg] BP Absfxuoxe22wm[Hg] Pulse98{beats}/min Tdllnxatirz16e O2 SAT95% BMI32.4kg/m2 Yrvswg41to Wkkone825qd Encounters Ambulatory Encounter Diagnosis:Hematuria syndrome 27-Nov-2023 KEYONA HARRINGTON (Attending) [facility] Goal Instructions Future Appointment Date Keyona Harrington Phone: [phone] Address: [address] [place] [id number] TESTS Test Name Status Date UA Dipstick Visual w/o Micro [86500] Complete 11/27/2023 CULTURE, URINE, ROUTINE [395] Complete URINALYSIS MICROSCOPIC [8563] Complete EXTRA URINE SPECIMEN [XUAT] Complete 11/28 COMPREHENSIVE METABOLIC PANEL [62876] Complete 11/27/2023 CBC (INCLUDES DIFF/PLT) [9091] Complete
[2024-08-27 09:43] LABS: Alanine Aminotransferase 42 U/L (14-59); Albumin Level 3.3 g/dL (3.4-5.0); Alkaline Phosphatase 105 U/L (46-116); Anion Gap 8 mmol/L (4-12); Aspartate Amino Transferase 15 U/L (15-37); Bilirubin,Total 0.5 mg/dL (0.00-1.00); Blood Urea Nitrogen 17 mg/dL (7-18); CRP 0.7 mg/dL (0.0-0.9); Calcium 9.1 mg/dL (8.5-10.1); Carbon Dioxide 30 mmol/L (21-32); Chloride 105 mmol/L (98-108); Creatine Kinase 82 U/L (26-192); Estimated Glomerular Filt Rate 47; Glucose 161 mg/dL (70-99); Osmolality Calculated 300 mOsm/kg (285-295); Potassium 4.5 mmol/L (3.5-5.1); Sodium 143 mmol/L (136-145)
== END 2024-08-27 08:58 | disposition home or self-care (01) ==
PROVIDERS: PCP Internal Medicine; Visit Provider Internal Medicine
DX: R53.83 Other fatigue (principal); R06.00 Dyspnea, unspecified
CPT/HCPCS: 36415; 80053; 82550; 86140

== ENCOUNTER 2024-10-01 10:28 | Outpatient (CLI) | payer MEDICARE, MEDICAID, SELFPAY ==
[2024-10-01 11:08] LABS: Hemoglobin A1C 6.8 % (<5.7)
[2024-10-01 11:23] LABS: Alanine Aminotransferase 26 U/L (6-35); Albumin Level 3.8 g/dL (3.5-5.1); Alkaline Phosphatase 81 U/L (38-126); Anion Gap 7 mmol/L (4-12); Aspartate Amino Transferase 26 U/L (14-36); Bilirubin,Total 0.5 mg/dL (0.2-1.3); Blood Urea Nitrogen 20 mg/dL (7-17); Calcium 9.2 mg/dL (8.4-10.2); Carbon Dioxide 25 mmol/L (22-30); Chloride 106 mmol/L (98-107); Estimated Glomerular Filt Rate 59; Glucose 174 mg/dL (65-110); Osmolality Calculated 292 mOsm/kg (285-295); Potassium 4.1 mmol/L (3.4-5.0); Sodium 138 mmol/L (137-145); Total Protein 6.6 g/dL (6.3-8.2)
== END 2024-10-01 10:29 | disposition home or self-care (01) ==
LOC: CHSLAB 10:30
PROVIDERS: PCP Internal Medicine; Visit Provider Internal Medicine
DX: I12.9 Hypertensive chronic kidney disease with stage 1 through stage 4 chronic kidney disease, or unspecified chronic kidney disease (principal); N18.9 Chronic kidney disease, unspecified; E11.9 Type 2 diabetes mellitus without complications
CPT/HCPCS: 36415; 80053; 83036